=== PATIENT | male | born 1950 | race Caucasian/White ===

== ENCOUNTER 2020-01-01 06:47 | Day surgery (SDC) | payer MEDICARE, SELFPAY ==
[2019-12-31 14:56] VITALS: BMI 25.0
--- NOTE | 2020-01-01 07:15 | W.PM.OPSUD ---
Surgery/Procedure H&P Update DATE OF PROCEDURE: January 01, 2020 DATE H&P PERFORMED: 12/30/19 H&P UPDATE INFORMATION: I have reviewed H&P completed within last 30 days and Changes to prior documentation as noted here CHANGES TO PREVIOUS DOCUMENTATION: The patient indicated that he stopped his Eliquis as directed 2 days ago. During his bowel prep yesterday he did not see any bright red blood but ended up seeing some very dark black stool and describes 1 episode of what he thinks was hematemesis. He has also been having some fleeting epigastric abdominal pains. I told him that as long as he is here and has the indicated ongoing need for blood thinning, I think we need to add an esophagogastroduodenoscopy to his procedures today. The procedure was discussed with him in some detail and he is agreeable to proceeding with both upper and lower endoscopy today. PREOP DIAGNOSIS: Hematochezia, hematemesis, epigastric pain, history of colon cancer PLANNED PROCEDURE: Operation Date: 01/01/20 08:30 Proposed Procedures p Colonoscopy and EGD (Not Applicable) - Reinier Bose MD
[2020-01-01 07:17] VITALS: BP 154/102; PULSE 84; RESP 18; TEMP 36.3; O2SAT 97
[2020-01-01] MEDS: sodium chloride 0.9% 1,000 ML 30 ML IV (07:35)
--- NOTE | 2020-01-01 08:12 | ANES.PREANE2 ---
Pre-Anesthetic Assessment Pre-Anesthetic Assessment: Height/Weight: Height 1.7 m Weight 72.575 kg Temp Pulse Resp BP Pulse Ox 97.4 F L 84 18 154/102 97 01/01/20 07:17 01/01/20 07:17 01/01/20 07:17 01/01/20 07:17 01/01/20 07:17 Preop Diagnosis: Hematochezia, hematemesis, epigastric pain, history of colon cancer Proposed Procedure: Operation Date: 01/01/20 08:30 Proposed Procedures p Colonoscopy(Not Applicable) - Reinier Bose MD Was Beta Anny taken within 24 hours: Yes Last intake: Intake Last Liquid Date 12/31/19 Last Liquid Time 20:00 Last Solid Date 12/31/19 Last Solid Time 06:00 Social: Social History: Alcohol and No tobacco Exam: Pre-Anes Outpt Exam: alert, oriented x 3, clear to auscultation bilaterally and regular rate & rhythm Airway: Submandibular: WNL Cervical ROM: WNL MP: 2 Dentition: False and Full History/ROS: No significant history except as noted and No significant complaints Pulmonary: Pulmonary: Cough CV/HEM: CV/HEM: HTN : : None reported Hepatic: Hepatic: Hepatitis Comments: treated and supposedly neg for Hep C GI: GI: GERD Metabolic: Metabolic: None reported Musc/skel: Musc/skel: OA/DJD Neuropsych: Neuropsych: None reported Anesthetic Plan: ASA status: 3 Anesthesia: Anesthesia Evaluation and MAC Risk of > 500 ml blood loss (7ml/kg in children): No Meds/Allergies Current Medications: Current Medications Generic Name Dose Route Start Last Admin Trade Name Freq PRN Reason Stop Dose Admin Sodium Chloride 1,000 mls @ 30 ml s/hr 01/01/20 07:00 01/01/20 07:35 Sodium Chloride 0.9% IV 01/02/20 06:59 30 mls/hr .Q24H ERIKA Administration Data Anesthesia Cardiac Studies: No Data to Display
[2020-01-01 08:56] VITALS: BP 95/71; PULSE 75; RESP 16; TEMP 36.1; O2SAT 97
[2020-01-01 09:52] VITALS: BP 123/72; PULSE 70; RESP 18; TEMP 36.2; O2SAT 100
[2020-01-02 06:45] LABS: H. Pylori / CLO Test Negative
== END 2020-01-01 09:41 | disposition home or self-care (01) ==
PROVIDERS: Family Provider Family Medicine; PCP Family Medicine; Visit Provider Surgery
PROC: 0DJD8ZZ Inspection of Lower Intestinal Tract, Via Natural or Artificial Opening Endoscopic (ICD-10-PCS; CPT 45378; principal; 2020-01-01 08:25)
PROC: 0DJD8ZZ Inspection of Lower Intestinal Tract, Via Natural or Artificial Opening Endoscopic (ICD-10-PCS; CPT 45378; 2020-01-01 08:25)
DX: K92.1 Melena (principal); Z85.038 Personal history of other malignant neoplasm of large intestine; D12.4 Benign neoplasm of descending colon; D12.5 Benign neoplasm of sigmoid colon; K62.89 Other specified diseases of anus and rectum; K21.0 Gastro-esophageal reflux disease with esophagitis; K29.70 Gastritis, unspecified, without bleeding; K29.80 Duodenitis without bleeding; I10 Essential (primary) hypertension; M19.90 Unspecified osteoarthritis, unspecified site; Z79.01 Long term (current) use of anticoagulants
CPT/HCPCS: 43239; 45385; 12345; 45380; 87077; 88305; J2370; J2704; J7030

== ENCOUNTER 2020-01-13 15:32 | Outpatient (CLI) | payer MEDICARE, SELFPAY ==
[2020-01-13 17:52] LABS: Alanine Aminotransferase 47 U/L (0-41); Albumin Level 4.2 g/dL (3.5-5.2); Alkaline Phosphatase 70 IU/L (40-130); Anion Gap 19.3 (5-19); Aspartate Amino Transferase 43 U/L (0-40); Blood Urea Nitrogen 5 mg/dL (8-23); Calcium 9.6 mg/dL (8.5-10.5); Carbon Dioxide 22 mmol/L (22-29); Chloride 100 mmol/L (98-107); Globulin 3.6 g/dL (1.3-4.6); Glucose 109 mg/dL (65-115); Iron 126 ug/dL (59-158); Osmolality Calculated 280 mOsm/kg (285-295); Percent Saturation 41.8 % (20-50); Potassium 4.3 mmol/L (3.5-5.1); Sodium 137 mmol/L (136-145); Total Bilirubin 0.4 mg/dL (0.15-1.2); Total Iron Binding Capacity 301 mcg/dl; Total Protein 7.8 g/dL (6.6-8.7); Unsaturated Iron Binding 175 ug/dL (112-347)
[2020-01-13 18:04] LABS: Basophils # 0.1 10^3/uL (0.0-0.1); Eosinophils # 0.1 10^3/uL (0.0-0.8); Eosinophils % 1.4 %; Hematocrit 43.3 % (42.0-52.0); Hemoglobin 14.6 g/dL (11.7-16.6); Lymphocytes # 2.3 10^3/uL (0.8-4.8); Lymphocytes % 31.1 %; Mean Corpuscular HGB Conc 33.7 g/dL (30.0-36.0); Mean Corpuscular Hemoglobin 31.7 pg (28.0-34.0); Mean Corpuscular Volume 93.9 fL (80-94); Mean Platelet Volume 9.8 fL (7.4-10.4); Monocytes # 0.6 10^3/uL (0.2-0.9); Monocytes % 8.7 %; Neutrophils # 4.2 10^3/uL (1.8-7.7); Neutrophils % 57.1 %; Nucleated Red Blood Cells % 0 %; Platelet Count 266 10^3/cmm (130-400); Red Blood Count 4.61 10^6/uL (4.1-5.3); Red Cell Distribution Width 12.1 % (12.1-15.1); White Blood Count 7.3 10^3/uL (4.0-10.0)
--- NOTE | 2020-01-13 18:09 | ONC CON_ITS ---
Dr. Peacock New Patient Note Patient: Jay Eisenberg Unit #: [id number]: 1950 Dicatated By: Sharath Peacock M.D.Date of Visit: January 13, 2020 Onc MED New Patient/Consult Referring Physician: Dr. Reinier Bose M.D. Chief Complaint: Rectal cancer. History of Present Illness: This is a 69 year-old man with recently diagnosed adenocarcinoma of the rectum. He has a history of moderate to poorly differentiated adenocarcinoma of the ascending colon for which he underwent right hemicolectomy on 05/24/2005. His primary tumor measured 6.5 x 4.7 x 1.5 cm. It was invading into the subserosal connective tissues, but there was no involvement in 28 lymph nodes. His disease was thus stage IIA (T3, N0, M0). He declined adjuvant chemotherapy. He failed to return for follow-up. He did have a negative surveillance colonoscopy in March 2009. He had presented recently with a several week history of rectal bleeding. He also was having epigastric pain, and he had one episode of hematemesis. He was seen by Dr. Bose, and he underwent EGD and colonoscopy on 01/01/2020. The EGD showed evidence of reflux esophagitis, gastritis, and duodenitis. Biopsy of the esophagus showed benign gastric mucosa with no dysplasia or malignancy identified. The colonoscopy showed sessile polyps in the mid ascending colon and the distal sigmoid colon. The rectum showed a small size, nonobstructing malignant appearing mass. It was not actively bleeding. It was palpable on digital exam, but the distance from the anal verge was not reported. Pathology on the descending colon polyp showed tubular adenoma with focal high-grade dysplasia. The sigmoid polyp showed tubular adenoma. The rectal mass showed moderately differentiated adenocarcinoma with desmoplastic response. He is seen for further management. He has been feeling pretty good generally, though his energy level is somewhat variable. His ECOG score is 1. His appetite has not been as good, but his weight is stable. He has not had fever or night sweats. He had stopped taking apixaban prior to the colonoscopy and following the procedure, his rectal bleeding stopped. He was prescribed medication for the esophagitis, but he has not been taking it. For the last few weeks he has been spitting up a lot of clear to light yellow phlegm from his throat when he first gets up in the morning. He assumes this is from sinus drainage. He has some shortness of breath. He has palpitations associated with his atrial fibrillation, and he does have episodes of rapid heart rate. He is able to get these to subside by lying down. He has not been having chest pain. He has had some nausea. He has not recently been having epigastric pain or acid reflux symptoms. His bowels have been loose ever since his colon surgery. His bladder function has been okay. Recently he has been having pain in his right leg which radiates up to his right hip and lower back. This tends to occur mainly at night and it does get better with activity. He has no other joint or bone pain. He does not complain of headache. He occasionally has dizziness. He has intermittent numbness in his left arm and hand which seems to be positional. He has no other focal neurologic symptoms. Past Medical History: His medical history includes atrial fibrillation, benign prostatic hypertrophy, and hypertension. He has ahistory of ascending colon cancer, stage IIA (T3, N0, M0), and he has a history of treated hepatitis C. Past Surgical History: He underwent right hemicolectomy on 05/24/2005. He had surveillance colonoscopy in March 2009. He underwent EGD and colonoscopy on 01/01/2020. His other surgeries have been limited to TURP and bilateral cataract excisions. Medications: Eliquis 1 Tablet (of 5 mg) Oral b.i.d., Finasteride 1 Tablet (of 5 mg) Oral daily, Lisinopril 1 Tablet (of 10 mg) Oral daily, Metoprolol Succinate ER 1 Tablet (of 25 mg) Tablet SR 24 HR Oral b.i.d. Allergies: citrus intolerance and Penicillins. Social History: Mr. Eisenberg is . He is retired. He had previously worked as a boo. He has history of smoking at least a pack of cigarettes daily for 20 years. He had quit for 12 years but then smoked for another 3 or 4 years. He quit again 5 or 6 years ago. He drinks 2-3 beers daily. Family History: Father of heart attack at age 50. Mother also had heart disease but lived to age 93. A brother also has heart disease and heart disease reportedly runs in the family . A sister of lung cancer at age 68. Review Of Symptoms: Constitutional - He generally feels okay. His energy varies from day to day. He is able to do light work. His appetite varies day to day. His weight is stable. No fever, chills, hot flashes, or night sweats. ECOG score is 1, Eyes - He had cataract surgery, ENMT - He denies a change in hearing. He is having sinus drainage in the mornings. No mouth sores. No sore throat or difficulty swallowing, Hematologic/Lymphatic - He has been having bleeding through his stools. He has no abnormal bruising, Respiratory - He gets short of breath with exertion. He has productive cough with the sinus drainage when he first gets up in the morning. No pleuritic pain or hemoptysis, Cardiovascular - No angina pain. He has palpitations associated with atrial fibrillation. He has frequent episodes of rapid heart rate, Gastrointestinal - No nausea or vomiting. He was having heartburn and epigastric pain. He has had loose stools since his colon surgery. He was having significant amount of blood in the stool, but that has subsided following the colonscopy, Genitourinary (M) - No dysuria or hematuria. No urinary frequency. No urgency or incontinence. He had a prostate surgery 3-4 years ago, Musculoskeletal - He has been having pain in his right leg that radiates up into his hip and back, Integumentary - No skin complications, Neurologic - No headache. He occasionally has dizziness. He has umbness in his left arm and hand whicih is positional, Psychiatric - No anxiety or depression. No insomnia. Vital Signs: Performed on January 13, 2020 15:52: 0, 26.63, 1.89 sq.m, 67.00 in, 97 %, 79 /min, 18 /min, 117/85 mm(hg), 97.7 F (LOW), and 170.0 lbs (HIGH). Physical Examination: Constitutional - He appears to be in good general health, Eyes - Sclerae nonicteric. Conjunctivae clear, ENMT - No lesions noted in the oral cavity, Neck - No mass or thyromegaly, Hematologic/Lymphatic - No cervical, clavicular, or axillary adenopathy, Respiratory - Lungs are clear with pretty good air movement bilaterally, Cardiovascular - Heart rhythm is regular. There is no murmur, gallop, or rub noted, Abdomen - Soft and non-tender. Liver and spleen are not enlarged. There is no abdominal mass or ascites noted and there is no inguinal adenopathy, Back/Spine - No spine or CVA tenderness noted, Extremities - No edema. Pedal pulses are palpable bilaterally, Integumentary - No rashes. No suspicious skin lesions noted, Neurologic - No focal neurologic deficits noted. Impression: 1. Patient with moderately differentiated adenocarcinoma of the rectum. Staging is incomplete. He had presented with rectal bleeding, that has subsided after stopping apixaban. 2. He has prior history of moderate to poorly differentiated adenocarcinoma of the ascending colon, stage IIA (T3, N0, M0) for which he underwent right hemicolectomy on 05/24/2005. He declined adjuvant chemotherapy. He has had no evidence of recurrence. His other medical illnesses include: 3. Hypertension. 4. Atrial fibrillation, which appears to be intermittent. 5. Benign prostatic hypertrophy. 6. He has a history of treated hepatitis C. Plan: The endoscopy findings and pathology results were reviewed with the patient and we discussed the implications. He has a moderately differentiated rectal adenocarcinoma. Staging is incomplete, but it appears to be a small primary tumor. I reviewed the standard treatment for rectal cancer which includes neoadjuvant chemoradiation followed by surgery and possibly by postoperative adjuvant chemotherapy. In this case, with a small primary tumor, there may be other options. As such, I will check baseline laboratory studies today and will arrange for referral to a colorectal surgeon. I will coordinate the planning of his imaging studies with that appointment. We can then plan his definitive treatment when that evaluation is completed. In the meantime, I did recommend that he stay off the apixaban. Signed By: Sharath Peacock M.D. <<Signature on File>>
== END 2020-01-13 15:33 | disposition home or self-care (01) ==
LOC: ONCMED 15:39
PROVIDERS: PCP Family Medicine; Referring Provider Surgery; Visit Provider Internal Medicine Medical Oncology
DX: C20 Malignant neoplasm of rectum (principal); Z85.038 Personal history of other malignant neoplasm of large intestine; Z90.49 Acquired absence of other specified parts of digestive tract; I10 Essential (primary) hypertension; I48.91 Unspecified atrial fibrillation; N40.0 Benign prostatic hyperplasia without lower urinary tract symptoms; Z79.899 Other long term (current) drug therapy
CPT/HCPCS: 36415; 80053; 82378; 83540; 83550; 85025; 99205

== ENCOUNTER 2020-01-15 11:21 | Outpatient (CLI) | payer MEDICARE, SELFPAY ==
--- NOTE | 2020-01-15 11:47 | CT_ITS ---
WS: [id number] CT CHEST, ABDOMEN AND PELVIS WITH AND WITHOUT CONTRAST. HISTORY: MALIGNANT NEOPLASM RECTUM TECHNIQUE: Contiguous 5 mm axial imaging performed through the chest, abdomen and pelvis with and wit hout IV contrast, oral contrast has been provided. Coronal and sagittal reformats chest. Coronal and sagittal reformats through the abdomen and pelvis. All CT scans at [facility] use at leas t one of these dose optimization techniques: automated exposure control; mA and/or kV adjustment per patient size (includes targeted exams where dose is matched to clinical indication); or iterative rec onstruction. CONTRAST: Omnipaque 300; 95 mL IV. DLP: 1415.14 mGy.cm COMPARISON: None available. Chest CT: Lungs are well-aerated. 4 mm groundglass nodule image 21 of series 7 RIGHT upper lobe. Ther e are several nodules which are rounded and ovoid along the fissures. Typically these are benign nodu les. Some of these perifissural nodules are slightly rounded which is more concerning than an ovoid n odule. No pericardial or pleural effusions. Subcentimeter mediastinal and hilar lymph nodes. The larg est lymph node is 9 mm at the AP window. Atherosclerosis of aorta. LEFT vertebral artery arises from the arch. Normal size pulmonary artery. Small hiatal hernia. Abdomen CT: Liver is normal size with diffuse hepatic steatosis. Normal portal vein. Normal size sple en. Normal gallbladder and adrenal glands. Pancreas is negative. Cortical hypodensity in the lower po le of the RIGHT kidney is too small to characterize. No solid mass or obstruction. There is a very sl ight focal dilatation of the mid ureters which may be due to peristalsis. No adenopathy or free fluid . No GI tract obstruction. Partial RIGHT colectomy. No recurrent mass at the hepatic flexure near the s urgical anastomosis. No soft tissue in the rectal region. No rectal mass identified by CT. Pelvic CT: No free fluid in the pelvis. Urinary bladder is well distended. No pelvic adenopathy. Smal l benign appearing inguinal lymph nodes. No osteoblastic or osteolytic bone disease. CT/CT chest abd pel wo/w con IMPRESSION: 1. Status post RIGHT hemicolectomy. No recurrent mass. 2. Known rectal tumor is not identified by CT. 3. No significant adenopathy in the chest, abdomen or pelvis. 4. No metastatic disease to the liver or adrenal glands. 5. Hepatic steatosis. 6. Groundglass nodule RIGHT upper lobe with bilateral perifissural nodules. Lo w probability of malignancy but follow-up chest CT in 6 months is recommended.
[2020-01-15] MEDS: iohexol 300 mg/mL 50 mL Btl PO (13:39)
[2020-01-15] MEDS: iohexol 300 mg/mL 100 mL Btl IV (13:39)
== END 2020-01-15 11:22 | disposition home or self-care (01) ==
LOC: RAD 11:24
PROVIDERS: PCP Family Medicine; Visit Provider Internal Medicine Medical Oncology
DX: C20 Malignant neoplasm of rectum (principal); K76.0 Fatty (change of) liver, not elsewhere classified; R91.1 Solitary pulmonary nodule
CPT/HCPCS: 71260; 74178

== ENCOUNTER 2020-03-29 09:49 | Outpatient (CLI) | payer MEDICARE, SELFPAY ==
[2020-03-29 11:59] LABS: Basophils # 0.1 10^3/uL (0.0-0.1); Eosinophils # 0.1 10^3/uL (0.0-0.8); Eosinophils % 1.2 %; Hemoglobin 15.8 g/dL (11.7-16.6); Lymphocytes # 2.1 10^3/uL (0.8-4.8); Lymphocytes % 25.7 %; Mean Corpuscular HGB Conc 33.6 g/dL (30.0-36.0); Mean Corpuscular Hemoglobin 31.3 pg (28.0-34.0); Mean Corpuscular Volume 93.1 fL (80-94); Mean Platelet Volume 9.3 fL (7.4-10.4); Monocytes # 0.7 10^3/uL (0.2-0.9); Monocytes % 8.7 %; Neutrophils # 5.02 10^3/uL (1.8-7.7); Neutrophils % 62.8 %; Nucleated Red Blood Cells % 0 %; Platelet Count 258 10^3/cmm (130-400); Red Blood Count 5.05 10^6/uL (4.1-5.3); Red Cell Distribution Width 11.6 % (12.1-15.1)
[2020-03-29 12:22] LABS: Carcinoembryonic Antigen 4.1 ng/mL (0.0-4.7)
[2020-03-29 12:33] LABS: Alanine Aminotransferase 55 U/L (0-41); Albumin Level 4.3 g/dL (3.5-5.2); Alkaline Phosphatase 66 IU/L (40-130); Anion Gap 18.3 (5-19); Aspartate Amino Transferase 44 U/L (0-40); Blood Urea Nitrogen 3 mg/dL (8-23); Calcium 8.8 mg/dL (8.5-10.5); Carbon Dioxide 23 mmol/L (22-29); Chloride 99 mmol/L (98-107); Globulin 3.7 g/dL (1.3-4.6); Glucose 98 mg/dL (65-115); Osmolality Calculated 278 mOsm/kg (285-295); Potassium 4.3 mmol/L (3.5-5.1); Sodium 136 mmol/L (136-145); Total Bilirubin 0.6 mg/dL (0.15-1.2)
--- NOTE | 2020-03-30 14:07 | N.ONRAD NP_ITS ---
Radiation Oncology New Patient Visit Patient: Jay Eisenberg MR#: [id number] : 1950> Age: 69> Sex: Male> Dictated by: Dr. Isma Pringle Date of Service: 03/29/2020 Referring Physician(s) : Dr. Reinier Bose Diagnosis: C20 - malignant neoplasm of rectum, Diagnosed 01/13/2020 (active) and Z85.038 - personal history of other malignant neoplasm of large intestine, Diagnosed 01/13/2020 (active). Primary Site: Rectum Diagnosis: pT2 N0 (0/1) M0 adenocarcinoma of the rectum. Purpose of Visit: Discuss the role of radiotherapy with curative intent. History of Present Illness: The patient is a 69-year-old male with a past medical history significant atrial fibrillation treated with Eliquis. He also has a past medical history significant for a T3N0M0 poorly differentiated adenocarcinoma of the ascending colon which was treated with a right hemicolectomy (05/24/2005) without adjuvant chemotherapy due to patient preferences. The primary tumor measured 6.5 x 4.7 x 1.5 cm which invaded into subserosal connective tissue but there was no involvement in 28 lymph nodes. Per review of the medical records, the patient was not fully compliant with oncologic surveillance (his last colonoscopy was in March 2009 and it was negative). More recently, the patient presented with a three week history of rectal bleeding which would ???fill the toilet bowl??? with blood. His rectal bleeding subsequently responded to withholding anticoagulation therapy. He also complained of episodic epigastric pain, and one episode of hematemesis. On 01/01/2020 Dr. Bose performed an EGD, colonoscopy and biopsy of the esophageal region, descending colon polyp, sigmoid colon polyp, and rectal mass biopsies. Pathology revealed moderately differentiated adenocarcinoma of the rectal mass, and benign findings in the esophagus, descending colon, and sigmoid colon. On 01/19/2020, an MRI of the pelvis was completed and this revealed mild focal thickening of the left lower rectal wall (favored to represent known neoplasm), tiny 3 mm perirectal and 4 mm presacral lymph nodes, and an inconvenient completely evaluated lobulated enhancing lesion along the right S1 nerve root possibly indicating a neurogenic tumor. It was recommended that the patient obtain another pre-and postcontrast MRI of the lumbar spine. The patient then underwent a transanal minimally invasive tumor resection and 1 lymph node sampling (Dr Diaz 02/19/2020). During the exam under anesthesia the tumor was described as being a mobile palpable lesion in the left lateral position. Pathology revealed a 1.5 cm mass of moderately differentiated adenocarcinoma invading into muscularis propria, margins negative by 5 mm, no lymphovascular invasion, no perineural invasion, 0/1 involved lymph nodes, and low probability of MSI-H. In consultation today, the patient reports that he does not desire surgical options, if it can be avoided. He reports no abdominal pain, no bloody stools, no pain on defecation, no pencil like stools, and no diarrhea. Current Medications: Eliquis, finasteride, lisinopril, metoprolol Succinate ER. Allergies: citrus intolerance. Medical History: - Atrial fibrillation, - benign prostatic hypertrophy, - history of ascending colon cancer, stage IIA (T3, N0, M0), - history of treated hepatitis C, - hypertension. No history of collagen vascular disease. No previous radiation therapy. Surgical History: Bilateral cataract excisions, eGD and colonoscopy on 01/01/2020, right hemicolectomy for ascending colon cancer on 05/24/2005, surveillance colonoscopy in 2008 and tURP. Family History: Father is at age 50 having experienced myocardial infarction. Mother is at age 93 having experienced heart disease, and old age. Brother is alive. Brother is alive having experienced heart murmur. Sister is alive. Sister is at age 58 having experienced lung cancer. Father of heart attack at age 50. Mother also had heart disease but lived to age 93. A brother also has heart disease and heart disease reportedly runs in the family . A sister of lung cancer at age 68. Social History: Last screened on 03/29/2020 - Yes - but has quit for 6 years. Smoked 0.5 packs/day for 48 years (24 pack years). Last screened on 03/29/2020 - Active drinker 3 drinks/day 1 day/week. Current Complaints / Review of Systems: Constitutional - Denies lack of appetite, fatigue, fever, night sweats and change in weight. Eyes - Denies blurred vision and double vision. ENMT - Denies dysphagia, ear pain, mouth dryness, stomatitis and altered taste. Neck - Denies neck pain. Integumentary - Denies rash. Cardiovascular - Complains of arrhythmias and has H/O of having A-Fib. Denies chest pain and edema. Respiratory - Complains of a moderate cough which is productive. Complains of dyspnea associated with normal activity and is hard to cough it up at times. Denies hemoptysis and wheezing. Gastrointestinal - Complains of diarrhea which is characterized as loose in which he has had this for years. Complains of heartburn / dyspepsia. Complains of melena / GI bleeding in which it has improved and had a streak of blood with wiping this morning. Denies abdominal pain, constipation, nausea, pain / cramping and vomiting. Has rectal irritation from recent surgery. Genitourinary (M) - Complains of nocturia occasionally. Denies frequency, hematuria and urgency. Musculoskeletal - Denies bone pain and joint pain. Has been having leg cramps off and on. Neurologic - Denies dizziness, abnormal gait and headaches. Endocrine - Denies diabetes and thyroid disease. Hematologic/Lymphatic - Denies tender or enlarged lymph nodes.. Vital Signs: Performed on 03/29/2020 10:15 AM BMI - 25.749 kg/m2 (high), Height - 67.00 in, Weight - 164.4 lbs, Temperature - 97.4 f, Pulse - 74, Respiration - 20, O2 Sat - 96 %, Pain - 0 and BP - 144/ 84 mm(hg)(high/). Physical Exam: GENERAL:??? The patient is alert, and in no acute distress. HEENT:??? Head is normocephalic. Face is symmetric. External ocular movements are intact. Sclera and conjunctivae are non erythematous. NECK:??? Trachea is midline.??? Thyroid is not enlarged by palpation.??? LYMPH NODES:??? There is no cervical, supraclavicular, axillary or inguinal adenopathy bilaterally. LUNGS:??? Clear to auscultation bilaterally. Respiratory movement is unlabored. HEART:??? Regular rate and rhythm. Digital rectal examination: There was no palpable mass palpated in the left lateral position. There is no inguinal adenopathy bilaterally. Rectal tone was normal. A faint amount of red blood on the glove was observed. ABDOMEN:??? Soft, nontender, without palpable mass.??? No hepatosplenomegaly. EXTREMITIES:??? No deformities. NEUROLOGIC:??? Gait and station are normal.??? The patient is well coordinated and strength is equal bilaterally. ONLINE PROJECT MANAGER:??? Cranial nerves II-XII are intact and without focal deficits.??? Psych: Affect is normal. Skin: Cursory review of the skin reveals no obvious lesions concerning for malignancy. Pain assessment: This patient???s pain was personally assessed by me. This patient requires no adjustments to pain medications at this time. Performance Status: 1 - No physically strenuous activity, but ambulatory and able to carry out light or sedentary work (e.g. office work, light house work). (ECOG) Pathology: Primary, c20 - malignant neoplasm of rectum, Diagnosed 01/13/2020 (active) and Primary, z85.038 - personal history of other malignant neoplasm of large intestine, Diagnosed 01/13/2020 (active). Lab: Test performed on 01/13/2020 4:32 PM Anion Gap - 19.3 (high), BUN - 5 mg/dl (low), Creatinine - 0.6 mg/dl (low), ALT (SGPT) - 47 u/l (high) and AST (SGOT) - 43 u/l (high). Imaging: See HPI Impression: The patient is a 69 year old male with pT2 N0 (0/1) M0 adenocarcinoma of the rectum. The patient desires no further surgery at this time. The patient has discussed this with Dr. Peacock and staff who plan to treat concurrently with Xeloda. We discussed the curative intent treatment goals of radiotherapy, prognosis with and without radiation therapy, radiation treatment logistics, and potential acute and late side effects. The patient verbalized understanding of the risks/benefits of radiotherapy and the patient has agreed to proceed as recommended. Therefore the plan is: -) Begin treatment radiation treatment planning to deliver a total dose of ~50.4 Gy in 1.8 Gy fractions; -) Search outside medical records to see if a pre & post contrast MRI of the pelvis was completed to work up the possible neurogenic tumor in the lumbar spine. Staff will check with Dr Weiss???s officer to see if this MRI has been ordered. -) Labs will be drawn today by Medical Oncology. Signed by: 03/30/2020 2:05:37 PM <<Signature on File>> Time spent with patient: CPT Code: CPT Code:
--- NOTE | 2020-04-02 10:04 | ONC FU_ITS ---
[facility] Patient Note Patient: Jay Nassar Unit #: [id number]: 1950 Dictated By: Sonali GonsalezDate of Visit: Mar 29, 2020 Onc MED Follow-Up/Prog Note Chief Complaint: Rectal cancer. History of Present Illness: Mr Nassar is a 69-year-old man with recently diagnosed adenocarcinoma of the rectum. He has a history of moderate to poorly differentiated adenocarcinoma of the ascending colon for which he underwent right hemicolectomy on 05/24/2005. His primary tumor measured 6.5 x 4.7 x 1.5 cm. It was invading into the subserosal connective tissues, but there was no involvement in 28 lymph nodes. His disease was thus stage IIA (T3, N0, M0). He declined adjuvant chemotherapy. He failed to return for follow-up. He did have a negative surveillance colonoscopy in March 2009. He had presented recently with a several week history of rectal bleeding. He also was having epigastric pain, and he had one episode of hematemesis. He was seen by Dr. Bose, and he underwent EGD and colonoscopy on 01/01/2020. The EGD showed evidence of reflux esophagitis, gastritis, and duodenitis. Biopsy of the esophagus showed benign gastric mucosa with no dysplasia or malignancy identified. The colonoscopy showed sessile polyps in the mid ascending colon and the distal sigmoid colon. The rectum showed a small size, nonobstructing malignant appearing mass. It was not actively bleeding. It was palpable on digital exam, but the distance from the anal verge was not reported. Pathology on the descending colon polyp showed tubular adenoma with focal high-grade dysplasia. The sigmoid polyp showed tubular adenoma. The rectal mass showed moderately differentiated adenocarcinoma with desmoplastic response. Mr Nassar was seen by Dr Peacock on 05/15/2020. He was then referred to Dr. Diaz in [place]. Mr. Nassar underwent transanal, minimally invasive tumor resection on 02/19/2020.. He follow-up with Dr. Diaz on March 10, 2020. Mr. aNssar was referred back to radiation oncology here at [facility] [place]. His current treatment plan will be concurrent Xeloda/radiation with curative intent per Dr Pringle (radiation oncologist). He has been undergoing the radiation data collection-scan, mri. Mr. Cordova does have his capecitabine tablets. He will also begin radiation therapy today. He has no new concerns. He states he feels pretty good. He is active around the house. He is eating and drinking well. He denies fever or chills. He denies any fever or mouth sores. He denies any new pain. He has had no rectal bleeding or discharge. He denies any diarrhea constipation. States his bowel and bladder are doing well. Her ECOG is 1. Past Medical History: Atrial fibrillation Benign prostatic hypertrophy History of ascending colon cancer, stage IIA (T3, N0, M0) History of treated hepatitis C Hypertension Past Surgical History: Bilateral cataract excisions TURP EGD and colonoscopy in 2019 Surveillance colonoscopy in 2008 Right hemicolectomy for ascending colon cancer in 2004 Allergies: citrus intolerance Medications: Eliquis 1 Tablet (of 5 mg) Oral b.i.d. Finasteride 1 Tablet (of 5 mg) Oral daily Lisinopril 1 Tablet (of 10 mg) Oral daily Metoprolol Succinate ER 1 Tablet (of 25 mg) Tablet SR 24 HR Oral b.i.d. Family History: Mr. Nassar's mother at age 93: heart disease, and old age. Mr. Nassar's father at age 50: myocardial infarction. Mr. Nassar has 2 brothers: 2 alive. Mr. Nassar's first brother's heart murmur. He has 2 sisters: 1 alive, 1 . Mr. Nassar's first sister's lung cancer. Father of heart attack at age 50. Mother also had heart disease but lived to age 93. A brother also has heart disease and heart disease reportedly runs in the family . A sister of lung cancer at age 68. Social History: Mr. Nassar is single and he is an unknown. Mr. Nassar quit smoking 6 years ago but had smoked 0.5 packs/day for 48 years. He drinks daily. He consumes 3 drinks/day 1 day/week. He is retired. He had previously worked as a boo. He has history of smoking at least a pack of cigarettes daily for 20 years. He had quit for 12 years but then smoked for another 3 or 4 years. He quit again 5 or 6 years ago. He drinks 2-3 beers daily. Review Of Symptoms: Constitutional Denies fevers, chills, night sweats, excessive fatigue or weight loss. Allergic/Immunologic No reactions. Eyes Denies significant visual changes. No diplopia. No amaurosis. ENMT Denies changes in hearing, sore throat, mouth sores, difficulty or changes in swallowing ability, and/or sinus drainage. Endocrine No diabetes, thyroid disease or hormone replacement. Denies hot flashes or night sweats. Hematologic/Lymphatic Denies easy bruising or bleeding. The patient denies any tender or palpable lymph nodes. Respiratory Denies dyspnea on exertion, chest pain, cough or hemoptysis. Denies orthopnea. Cardiovascular Denies anginal chest pain, palpitations or orthopnea. Gastrointestinal Denies nausea, vomiting, diarrhea, GI bleeding, or constipation. Denies change in bowel habits and/or stool color, no heartburn or early satiety. Genitourinary (M) Denies hematuria, dysuria, increased frequency, urgency, hesitancy or incontinence. Musculoskeletal Denies joint pain, swelling or redness. No decreased range of motion. Integumentary Denies chronic rashes, inflammation, ulcerations or skin changes. Neurologic Denies headache, blurred vision, and no areas of focal weakness or numbness. Normal gait. No sensory problems. Psychiatric Denies insomnia, depression, brit or mood swings. Constitutional Denies lack of appetite, fatigue, fever, night sweats and change in weight. Eyes Denies blurred vision and double vision. ENMT Denies dysphagia, ear pain, mouth dryness, stomatitis and altered taste. Neck Denies neck pain. Integumentary Denies rash. Cardiovascular Complains of arrhythmias and has H/O of having A-Fib. Denies chest pain and edema. Respiratory Complains of a moderate cough which is productive. Complains of dyspnea associated with normal activity and is hard to cough it up at times. Denies hemoptysis and wheezing. Gastrointestinal Complains of diarrhea which is characterized as loose in which he has had this for years. Complains of heartburn / dyspepsia. Complains of melena / GI bleeding in which it has improved and had a streak of blood with wiping this morning. Denies abdominal pain, constipation, nausea, pain / cramping and vomiting. Has rectal irritation from recent surgery Genitourinary (M) Complains of nocturia occasionally. Denies frequency, hematuria and urgency. Musculoskeletal Denies bone pain and joint pain. Has been having leg cramps off and on Neurologic Denies dizziness, abnormal gait and headaches. Endocrine Denies diabetes and thyroid disease. Hematologic/Lymphatic Denies tender or enlarged lymph nodes. Vital Signs: Performed on Mar 29, 2020 10:15 Height - 67.00 in Weight - 164.4 lbs Temperature - 97.4 F Pulse - 74 Respiration - 20 BP - 144/84 mm(hg) (HIGH) O2 Sat - 96 % Pain - 0 Performed on Mar 29, 2020 10:15 BMI - 25.749 kg/m2 (HIGH),1 - No physically strenuous activity, but ambulatory and able to carry out light or sedentary work (e.g. office work, light house work). (ECOG) Physical Examination: Constitutional Alert, oriented, no acute distress. Skin pink, warm and dry. Head Normocephalic; atraumatic. Eyes Conjunctivae and sclerae are clear and without icterus. Pupils are reactive and equal. Neck Supple without masses or thyromegaly. No jugular venous distension. Hematologic/Lymphatic No petechiae or purpura. No tender or palpable lymph nodes in the cervical or supraclavicular areas. Respiratory Lungs are clear to auscultation without rhonchi or wheezing. Cardiovascular Regular rate and rhythm of heart without murmurs,clicks, gallops or rubs. Abdomen Non-tender, non-distended, no masses or ascites. Good bowel sounds noted in all quads. No guarding or rebound tenderness. No pulsatile masses. Back/Spine Non-tender to palpation. Extremities No visible deformities, no cyanosis, clubbing or edema. Musculoskeletal No tenderness or swelling, normal range of motion without obvious weakness. Integumentary No rashes or lesions. Neurologic No sensory or motor deficits, normal cerebellar function, normal gait. Psychiatric Alert and oriented times three. Coherent speech. Verbalizes understanding of our discussions today. Laboratory:Test performed on Mar 29, 2020 11:40 Sodium 136 mmol/L Potassium 4.3 mmol/L Chloride 99 mmol/L CO2 23 mmol/L Anion Gap 18.3 BUN 3 mg/dL Creatinine 0.6 mg/dL Cr Clearance (Est) 119.1100 mL/min Glucose 98 mg/dL Calcium 8.8 mg/dL Protein, Total 8.0 g/dL Albumin 4.3 g/dL Globulin 3.7 g/dL Bilirubin, Total 0.6 mg/dL ALT (SGPT) 55 U/L AST (SGOT) 44 U/L Alkaline Phosphatase 66 IU/L WBC 8.0 10 3/uL RBC 5.05 10 6/uL HGB 15.8 g/dL HCT 47.0 % MCV 93.1 fL MCH 31.3 pg MCHC 33.6 g/dL RDW 11.6 % Platelet Count 258 10 3/cmm MPV 9.3 fL Neutrophils 5.02 10 3/uL Lymphocytes 2.1 10 3/uL Monocytes 0.7 10 3/uL Eosinophils 0.1 10 3/uL Basophils 0.1 10 3/uL Neutrophil % 62.8 % Lymphocyte % 25.7 % Monocyte % 8.7 % Eosinophil % 1.2 % Basophils % 1.0 % NRBC % 0 % CEA 4.1 ng/mL Test performed on January 13, 2020 16:32 Iron 126 mcg/dL Iron Binding Capacity (TIBC) 301 mcg/dl % Iron Saturation 41.8 % UIBC 175 mcg/dL Impression: 1. Patient with moderately differentiated adenocarcinoma of the rectum. Staging is incomplete. He had presented with rectal bleeding, that has subsided after stopping apixaban. 2. He has prior history of moderate to poorly differentiated adenocarcinoma of the ascending colon, stage IIA (T3, N0, M0) for which he underwent right hemicolectomy on 05/24/2005. He declined adjuvant chemotherapy. He has had no evidence of recurrence. His other medical illnesses include: 3. Hypertension. 4. Atrial fibrillation, which appears to be intermittent. 5. Benign prostatic hypertrophy. 6. He has a history of treated hepatitis C. The endoscopy findings and pathology results were reviewed with the patient per Dr Peacock. He discussed the implications. He has a moderately differentiated rectal adenocarcinoma. He has been evaluated by radiation oncology. Mr. Nassar is here today to begin his first cycle of concurrent therapy with radiation/chemotherapy. He denies any concerns. He states overall he feels pretty good. He denies any pain. He has had no rectal bleeding. He denies any abdominal pain. He is try to get out and walk more often and is tolerating this well. He remains fairly active around the house. Plan: 1. Proceed with Capecitabine his total dosing is 1800 twice daily on the days of radiation only. 2. we will make sure that he has Compazine Ativan on hand for any anti-emetic use. 3. Interim labs today CBC CMP and CEA. 4. We will have him do weekly visits along with CBC, CMP while he is on radiation. 5. AVOID GRAPEFRUIT PRODUCTS WHILE ON XELODA. 6. 6. Mr. Nassar was instructed to contact us in interim should questions or problems arise. 7. We did discuss in detail common side effects of Xeloda being diarrhea, skin peeling and fissures and mouth sores.. As well as many others. Signed By: Dickson GonsalezNMarissa <<Signature on File>>
== END 2020-03-29 09:50 | disposition home or self-care (01) ==
PROVIDERS: Absent Provider Radiology Radiation Oncology; PCP Family Medicine; Visit Provider Nurse Practitioner
DX: C20 Malignant neoplasm of rectum (principal); Z90.49 Acquired absence of other specified parts of digestive tract; Z79.01 Long term (current) use of anticoagulants; Z87.891 Personal history of nicotine dependence; Z85.038 Personal history of other malignant neoplasm of large intestine
CPT/HCPCS: 80053; 82378; 85025; 99214; 99215

== ENCOUNTER 2020-04-01 08:52 | Outpatient (CLI) | payer MEDICARE, SELFPAY ==
--- NOTE | 2020-04-01 09:30 | MR_ITS ---
WS: [id number] MRI LUMBAR SPINE WITH CONTRAST TECHNIQUE: Sagittal T1, T2 and STIR imaging. Axial T1 and T2 imaging. Post gadolinium imaging was obt ained. CLINICAL INFORMATION: RECTAL CA;LOBULATED LESION RT S1 NERVE ROOT SEEN ON MRI COMPARISON: Outside MRI pelvis January 19, 2020 FINDINGS: Mild lumbar curve. No acute compression. Disc bulging worse at L2-3. L1-L2: Normal. L2-L3: Left pericentral protrusion with indentation left subarticular recess and traversing left L3 n erve root. Mild facet arthropathy. Mild left foraminal narrowing. L3-L4: Mild annular bulging with slight effacement of ventral thecal sac. Mild right and no significa nt left foraminal narrowing. Mild facet arthropathy. L4-L5: Mild disc bulging with osteophytic ridging. Small annular fissure. Mild left greater than righ t foraminal narrowing. L5-S1: Enhancing lesion involving the exiting right L5 nerve root. Lobulated lesion measures approxim ately 2.3 x 1.6 CM. Left foramen is patent. Tiny central protrusion with slight effacement of ventral thecal sac. Mild facet arthropathy. Visualized pelvic bony structures: Normal. Paravertebral soft tissues: Normal. MR/MR lumbar spine wo/w con [id number] IMPRESSION: 1. Mild lumbar curve. No acute compression. 2. Prominent left pericentral disc protrusion L2-3 impinges the traversing lef t L3 nerve root in the subarticular recess. Mild central canal stenosis at this level. 3. Enhancing lobulated lesion involving the exiting right L5 nerve root measur ing 2.3 x 1.6 cm. Primary considerations are schwannoma and neurofibroma nerve sheath tumors. Metastasis cannot be entirely excluded with history of malignanc y but less likely given the appearance. Recommend 3 month interval follow-up to assess stability
== END 2020-04-01 08:53 | disposition home or self-care (01) ==
LOC: ONCMED 08:56
PROVIDERS: PCP Family Medicine; Visit Provider Radiology Radiation Oncology
DX: M51.06 Intervertebral disc disorders with myelopathy, lumbar region (principal); M48.061 Spinal stenosis, lumbar region without neurogenic claudication
CPT/HCPCS: 72158; A9579

== ENCOUNTER 2020-05-03 05:37 | Outpatient (RCR) | payer MEDICARE, SELFPAY ==
--- NOTE | 2020-04-05 | CT_ITS ---
Radiation Therapy Planning CT images; total exam DLP: 1132.62 mGy-cm MTDD
== END 2020-05-03 23:59 | disposition home or self-care (01) ==
LOC: ONCMED 05:37
PROVIDERS: PCP Family Medicine; Visit Provider Radiology Radiation Oncology
DX: Z51.0 Encounter for antineoplastic radiation therapy (principal); C20 Malignant neoplasm of rectum
CPT/HCPCS: 77300; 77301; 77334; 77338; 77386; Q9967

== ENCOUNTER 2020-06-02 05:42 | Outpatient (RCR) | payer MEDICARE, SELFPAY ==
--- NOTE | 2020-05-04 15:21 | ONCRAD TMN_ITS ---
Radiation Oncology Weekly Treatment Management Patient: Faina Thompson MR#: [id number] : 1950 Age: 69 Sex: Male Dictated by: Dr. Isma Pringle Date of Service: 05/04/2020 Referring Physician(s) : Dr. Reinier Bose Diagnosis: C20 - Malignant neoplasm of rectum, Diagnosed 01/13/2020 (Active) Z85.038 - Personal history of other malignant neoplasm of large intestine, Diagnosed 01/13/2020 (Active) Pertinent Diagnosis Detail: pT2 N0 (0/1) M0 adenocarcinoma of the rectum status post transanal minimally invasive tumor resection and 1 lymph node sampling (Dr Diaz 02/19/2020). During the exam under anesthesia the tumor was described as being a mobile palpable lesion in the left lateral position. Pathology revealed a 1.5 cm mass of moderately differentiated adenocarcinoma invading into muscularis propria, margins negative by 5 mm, no lymphovascular invasion, no perineural invasion, 0/1 involved lymph nodes, and low probability of MSI-H. In addition, there is a benign appearing mass in the L-spine most consistent with a schwannoma. The patient has been evaluated by Dr Daniel Peacock, neurosurgeon, who elected against biopsy for what was radiographically most likely to be a schwannoma. Although the MRI, read locally, raised a higher concern for metastasis/a malignant process, the MRI of the L spine was over-read at Dr Peacock???s facility and the reading radiologist was reported to concur that a benign schwannoma was most likely. Dr Daniel Peacock and I agreed that if radiation therapy were to be considered in the future to treat this lesion due progressive symptoms, it could be complicated due to prior radiotherapy. Thus, it was mutually agreed that it was reasonable to offer to treat the lesion with radiation simultaneously along with his radiation plan for rectal cancer. The patient was made aware of this decision and he consented. There still remains a small risk that this lesion might not be benign, and radiating it might potentially cause surgical treatment complications in the future. However, given his symptoms and existing planned treatment, it is a reasonable approach. Plan: -) Rectal Cancer: Concurrent chemoradiation therapy using Xeloda and an aggregate dose of 50.4 Gy. -) L spine mass: 50 Gy/25 fractions via simultaneous integrated boost to the L spine mass which radiographically appears to be a benign schwannoma and is causing symptoms. Radiotherapy to date: Course: Pelvis 2019, Treatment Site: Pelvis 25FX, Ref. ID: [id number], Energy: 15X/6X, Dose/Fx (cGy): 200, #Fx: , Dose Correction (cGy): 0, Total Dose (cGy): 400, Start Date: 05/03/2020, Elapsed Days: 1 Reason for visit: The patient is being seen today as part of their regularly scheduled weekly on treatment visits to assess for acute toxicities from radiotherapy. Interim History: The patient has persistent loose watery stools after his initial surgery, but he has no complaints today from treatment. Current Medications: Capecitabine, eliquis, finasteride, lisinopril, metoprolol Succinate ER. Allergies: citrus intolerance. Current Complaints/Review of Systems: Constitutional - Denies lack of appetite, fatigue, fever and night sweats. Integumentary - Has rectal irritation but no rectal bleeding. Gastrointestinal - Complains of persistent diarrhea which is characterized as loose, watery and has about 7 to 8 episodes per day. Denies abdominal pain, constipation, heartburn / dyspepsia, melena / GI bleeding, nausea and vomiting. Genitourinary (M) - Complains of nocturia gets up about 1 time per night. Denies dysuria, frequency and urgency. Vital Signs: Performed on 05/04/2020 11:02 AM BMI - 25.53 kg/m2 (high), Height - 67.00 in, Weight - 163.0 lbs, Temperature - 97.5 f, Pulse - 75, Respiration - 18, O2 Sat - 97 %, Pain - 0 and BP - 131/ 84 mm(hg). Physical Exam: Appears stable, no skin erythema or desquamation. Lungs are clear to auscultation bilaterally. Performance Status: 1 - No physically strenuous activity, but ambulatory and able to carry out light or sedentary work (e.g. office work, light house work). (ECOG) Lab: None pending in Radiation Oncology. Test performed on 03/29/2020 11:40 AM RDW - 11.6 % (low), BUN - 3 mg/dl (low), Creatinine - 0.6 mg/dl (low), ALT (SGPT) - 55 u/l (high) and AST (SGOT) - 44 u/l (high). Imaging: Radiation therapy imaging related to accurate target localization (i.e. KV, MV and CBCT) was reviewed. Appropriate changes, if any, were made to ensure treatment accuracy. Plan: The patient is tolerating therapy reasonably well. Radiotherapy will continue as planned. CPT: 88784 Signed by: Dr. Isma Pringle 05/04/2020 3:20:32 PM
--- NOTE | 2020-05-11 17:16 | ONCRAD TMN_ITS ---
Radiation Oncology Weekly Treatment Management Patient: Faina Thompson MR#: [id number] : 1950 Age: 69 Sex: Male Dictated by: Dr. Isma Pringle Date of Service: 05/11/2020 Referring Physician(s) : Dr. Reinier Bose Pertinent Diagnosis Detail: pT2 N0 (0/1) M0 adenocarcinoma of the rectum status post transanal minimally invasive tumor resection and 1 lymph node sampling (Dr Diaz 02/19/2020). During the exam under anesthesia the tumor was described as being a mobile palpable lesion in the left lateral position. Pathology revealed a 1.5 cm mass of moderately differentiated adenocarcinoma invading into muscularis propria, margins negative by 5 mm, no lymphovascular invasion, no perineural invasion, 0/1 involved lymph nodes, and low probability of MSI-H. In addition, there is a benign appearing mass in the L-spine most consistent with a schwannoma. The patient has been evaluated by Dr Daniel Peacock, neurosurgeon, who elected against biopsy for what was radiographically most likely to be a schwannoma. Although the MRI, read locally, raised a higher concern for metastasis/a malignant process, the MRI of the L spine was over-read at Dr Peacock???s facility and the reading radiologist was reported to concur that a benign schwannoma was most likely. Dr Daniel Peacock and I agreed that if radiation therapy were to be considered in the future to treat this lesion due progressive symptoms, it could be complicated due to prior radiotherapy. Thus, it was mutually agreed that it was reasonable to offer to treat the lesion with radiation simultaneously along with his radiation plan for rectal cancer. The patient was made aware of this decision and he consented. There still remains a small risk that this lesion might not be benign, and radiating it might potentially cause surgical treatment complications in the future. However, given his symptoms and existing planned treatment, it is a reasonable approach. Plan: -) Rectal Cancer: Concurrent chemoradiation therapy using Xeloda and an aggregate dose of 50.4 Gy. -) L spine mass: 50 Gy/25 fractions via simultaneous integrated boost to the L spine mass which radiographically appears to be a benign schwannoma and is causing symptoms. Radiotherapy to date: Course: Pelvis 2019, Treatment Site: Pelvis 25FX, Ref. ID: [id number], Energy: 15X/6X, Dose/Fx (cGy): 200, #Fx: , Dose Correction (cGy): 0, Total Dose (cGy): 1,200, Start Date: 05/03/2020, Elapsed Days: 8 Reason for visit: The patient is being seen today as part of their regularly scheduled weekly on treatment visits to assess for acute toxicities from radiotherapy. Interim History: The patient reports improved diarrhea. He has no complaints today. Current Medications: Capecitabine, eliquis, finasteride, lisinopril, metoprolol Succinate ER. Allergies: citrus intolerance. Current Complaints/Review of Systems: Constitutional - Denies lack of appetite, fatigue, fever, night sweats and change in weight. Integumentary - Has no rectal irritation. Gastrointestinal - Complains of diarrhea but has improved. Denies abdominal pain, constipation, heartburn / dyspepsia, melena / GI bleeding, nausea and vomiting. Genitourinary (M) - Denies dysuria, frequency, nocturia and urgency. Vital Signs: Performed on 05/11/2020 11:58 AM BMI - 25.686 kg/m2 (high), Height - 67.00 in, Weight - 164.0 lbs, Temperature - 97.4 f, Pulse - 75, Respiration - 18, O2 Sat - 96 %, Pain - 0 and BP - 131/ 72 mm(hg). Physical Exam: Appears stable, no skin erythema or desquamation. Lungs are clear to auscultation bilaterally. Performance Status: 1 - No physically strenuous activity, but ambulatory and able to carry out light or sedentary work (e.g. office work, light house work). (ECOG) Lab: None pending in Radiation Oncology. Imaging: Radiation therapy imaging related to accurate target localization (i.e. KV, MV and CBCT) was reviewed. Appropriate changes, if any, were made to ensure treatment accuracy. Plan: The patient is tolerating therapy reasonably well. Radiotherapy will continue as planned. CPT: 75829 Signed by: Dr. Isma Pringle 05/11/2020 5:14:23 PM
--- NOTE | 2020-05-19 16:10 | ONCRAD TMN_ITS ---
Radiation Oncology Weekly Treatment Management Patient: Jay Eisenberg MR#: [id number] : 1950 Age: 69 Sex: Male Dictated by: Dr. Isma Pringle Date of Service: 05/18/2020 Referring Physician(s) : Dr. Reinier Bose Diagnosis: C20 - Malignant neoplasm of rectum, Diagnosed 01/13/2020 (Active) Z85.038 - Personal history of other malignant neoplasm of large intestine, Diagnosed 01/13/2020 (Active) Pertinent Diagnosis Detail: pT2 N0 (0/1) M0 adenocarcinoma of the rectum status post transanal minimally invasive tumor resection and 1 lymph node sampling (Dr Diaz 02/19/2020). During the exam under anesthesia the tumor was described as being a mobile palpable lesion in the left lateral position. Pathology revealed a 1.5 cm mass of moderately differentiated adenocarcinoma invading into muscularis propria, margins negative by 5 mm, no lymphovascular invasion, no perineural invasion, 0/1 involved lymph nodes, and low probability of MSI-H. In addition, there is a benign appearing mass in the L-spine most consistent with a schwannoma. The patient has been evaluated by Dr Daniel Peacock, neurosurgeon, who elected against biopsy for what was radiographically most likely to be a schwannoma. Although the MRI, read locally, raised a higher concern for metastasis/a malignant process, the MRI of the L spine was over-read at Dr Peacock???s facility and the reading radiologist was reported to concur that a benign schwannoma was most likely. Dr Daniel Peacock and I agreed that if radiation therapy were to be considered in the future to treat this lesion due progressive symptoms, it could be complicated due to prior radiotherapy. Thus, it was mutually agreed that it was reasonable to offer to treat the lesion with radiation simultaneously along with his radiation plan for rectal cancer. The patient was made aware of this decision and he consented. There still remains a small risk that this lesion might not be benign, and radiating it might potentially cause surgical treatment complications in the future. However, given his symptoms and existing planned treatment, it is a reasonable approach. Plan: -) Rectal Cancer: Concurrent chemoradiation therapy using Xeloda and an aggregate dose of 50.4 Gy. -) L spine mass: 50 Gy/25 fractions via simultaneous integrated boost to the L spine mass which radiographically appears to be a benign schwannoma and is causing symptoms. Radiotherapy to date: Course: Pelvis 2019, Treatment Site: Pelvis 25FX, Ref. ID: [id number], Energy: 15X/6X, Dose/Fx (cGy): 200, #Fx: , Dose Correction (cGy): 0, Total Dose (cGy): 2,200, Start Date: 05/03/2020, Elapsed Days: 15 Reason for visit: The patient is being seen today as part of their regularly scheduled weekly on treatment visits to assess for acute toxicities from radiotherapy. Interim History: The patient has no complaints today. He reports that his loose stools have improved with Imodium use. Furthermore, he reports that his pain in his lower back has significantly improved. Current Medications: Capecitabine, eliquis, finasteride, lisinopril, metoprolol Succinate ER. Allergies: citrus intolerance. Current Complaints/Review of Systems: Constitutional - Denies lack of appetite, fatigue, fever, night sweats and change in weight. Integumentary - No rectal irritation. Gastrointestinal - Complains of diarrhea but is improving with taking Imodium. Denies abdominal pain, constipation, heartburn / dyspepsia, melena / GI bleeding, nausea and vomiting. Genitourinary (M) - Complains of nocturia gets up about 1 time per night. Denies dysuria, frequency and urgency. Vital Signs: Performed on 05/18/2020 11:09 AM BMI - 25.53 kg/m2 (high), Height - 67.00 in, Weight - 163.0 lbs, Temperature - 97.6 f, Pulse - 67, Respiration - 18, O2 Sat - 97 %, Pain - 0 and BP - 136/ 80 mm(hg). Physical Exam: Lungs are clear to auscultation bilaterally. Performance Status: 1 - No physically strenuous activity, but ambulatory and able to carry out light or sedentary work (e.g. office work, light house work). (ECOG) Lab: None pending in Radiation Oncology. Test performed on 03/29/2020 11:40 AM RDW - 11.6 % (low), BUN - 3 mg/dl (low), Creatinine - 0.6 mg/dl (low), ALT (SGPT) - 55 u/l (high) and AST (SGOT) - 44 u/l (high). Imaging: Radiation therapy imaging related to accurate target localization (i.e. KV, MV and CBCT) was reviewed. Appropriate changes, if any, were made to ensure treatment accuracy. Plan: The patient is tolerating therapy reasonably well. Radiotherapy will continue as planned. CPT: 44523 Signed by: Dr. Isma Pringle 05/19/2020 4:08:40 PM
--- NOTE | 2020-05-26 17:38 | ONCRAD TMN_ITS ---
Radiation Oncology Weekly Treatment Management Patient: Faina Thompson MR#: [id number] : 1950 Age: 69 Sex: Male Dictated by: Dr. Isma Pringle Date of Service: 05/25/2020 Referring Physician(s) : Dr. Reinier Bose Diagnosis: C20 - Malignant neoplasm of rectum, Diagnosed 01/13/2020 (Active) Z85.038 - Personal history of other malignant neoplasm of large intestine, Diagnosed 01/13/2020 (Active) Pertinent Diagnosis Detail: pT2 N0 (0/1) M0 adenocarcinoma of the rectum status post transanal minimally invasive tumor resection and 1 lymph node sampling (Dr Diaz 02/19/2020). During the exam under anesthesia the tumor was described as being a mobile palpable lesion in the left lateral position. Pathology revealed a 1.5 cm mass of moderately differentiated adenocarcinoma invading into muscularis propria, margins negative by 5 mm, no lymphovascular invasion, no perineural invasion, 0/1 involved lymph nodes, and low probability of MSI-H. In addition, there is a benign appearing mass in the L-spine most consistent with a schwannoma. The patient has been evaluated by Dr Daniel Peacock, neurosurgeon, who elected against biopsy for what was radiographically most likely to be a schwannoma. Although the MRI, read locally, raised a higher concern for metastasis/a malignant process, the MRI of the L spine was over-read at Dr Peacock???s facility and the reading radiologist was reported to concur that a benign schwannoma was most likely. Dr Daniel Peacock and I agreed that if radiation therapy were to be considered in the future to treat this lesion due progressive symptoms, it could be complicated due to prior radiotherapy. Thus, it was mutually agreed that it was reasonable to offer to treat the lesion with radiation simultaneously along with his radiation plan for rectal cancer. The patient was made aware of this decision and he consented. There still remains a small risk that this lesion might not be benign, and radiating it might potentially cause surgical treatment complications in the future. However, given his symptoms and existing planned treatment, it is a reasonable approach. Plan: -) Rectal Cancer: Concurrent chemoradiation therapy using Xeloda and an aggregate dose of 50.4 Gy. -) L spine mass: 50 Gy/25 fractions via simultaneous integrated boost to the L spine mass which radiographically appears to be a benign schwannoma and is causing symptoms. Radiotherapy to date: Energy: 15X/6X Dose/Fx (cGy): 200 #Fx: Total Dose (cGy): 3,400 Start Date: 05/03/2020 End Date: 05/26/2020 Reason for visit: The patient is being seen today as part of their regularly scheduled weekly on treatment visits to assess for acute toxicities from radiotherapy. Interim History: The patient reports mild rectal irritation and occasional loose/watery stools. Reports no rectal bleeding or dysuria. Current Medications: Capecitabine, eliquis, finasteride, lisinopril, metoprolol Succinate ER. Allergies: citrus intolerance. Current Complaints/Review of Systems: Constitutional - Complains of lack of appetite off and on and change in weight in which he is down 1.2 lbs. since last OTV. Denies fatigue, fever and night sweats. Integumentary - No rectal bleeding but has irritation. Gastrointestinal - Complains of intermittent diarrhea which is characterized as loose, watery. Complains of satiety. Denies abdominal pain, constipation, melena / GI bleeding, nausea and vomiting. Genitourinary (M) - Complains of nocturia gets up about 1 to 2 times per night. Denies dysuria, frequency and urgency. Vital Signs: Performed on 05/25/2020 11:19 AM BMI - 25.342 kg/m2 (high), Height - 67.00 in, Weight - 161.8 lbs, Temperature - 98.0 f, Pulse - 74, Respiration - 20, O2 Sat - 97 %, Pain - 0 and BP - 111/ 73 mm(hg). Physical Exam: The patient declined an external anal exam. Performance Status: 1 - No physically strenuous activity, but ambulatory and able to carry out light or sedentary work (e.g. office work, light house work). (ECOG) Lab: None pending in Radiation Oncology. Test performed on 03/29/2020 11:40 AM RDW - 11.6 % (low), BUN - 3 mg/dl (low), Creatinine - 0.6 mg/dl (low), ALT (SGPT) - 55 u/l (high) and AST (SGOT) - 44 u/l (high). Imaging: Radiation therapy imaging related to accurate target localization (i.e. KV, MV and CBCT) was reviewed. Appropriate changes, if any, were made to ensure treatment accuracy. Plan: The patient is tolerating therapy reasonably well. Radiotherapy will continue as planned. CPT: 23489 Signed by: Dr. Isma Pringle 05/26/2020 5:35:53 PM
[2020-05-31 12:35] LABS: Basophils % 0.8 %; Eosinophils # 0.1 10^3/uL (0.0-0.8); Hematocrit 40.3 % (42.0-52.0); Hemoglobin 13.9 g/dL (11.7-16.6); Lymphocytes # 0.7 10^3/uL (0.8-4.8); Mean Corpuscular HGB Conc 34.5 g/dL (30.0-36.0); Mean Corpuscular Hemoglobin 32.6 pg (28.0-34.0); Mean Corpuscular Volume 94.6 fL (80-94); Mean Platelet Volume 9.4 fL (7.4-10.4); Monocytes # 0.6 10^3/uL (0.2-0.9); Monocytes % 12.5 %; Neutrophils # 3.61 10^3/uL (1.8-7.7); Neutrophils % 70.3 %; Nucleated Red Blood Cells % 0 %; Platelet Count 149 10^3/cmm (130-400); Red Blood Count 4.26 10^6/uL (4.1-5.3); Red Cell Distribution Width 13.3 % (12.1-15.1); White Blood Count 5.1 10^3/uL (4.0-10.0)
[2020-05-31 12:48] LABS: Alanine Aminotransferase 40 U/L (0-41); Albumin Level 4.1 g/dL (3.5-5.2); Alkaline Phosphatase 58 IU/L (40-130); Anion Gap 14.9 (5-19); Aspartate Amino Transferase 33 U/L (0-40); Blood Urea Nitrogen 5 mg/dL (8-23); Carbon Dioxide 24 mmol/L (22-29); Chloride 98 mmol/L (98-107); Globulin 3.3 g/dL (1.3-4.6); Glucose 95 mg/dL (65-115); Osmolality Calculated 273 mOsm/kg (285-295); Potassium 3.9 mmol/L (3.5-5.1); Sodium 133 mmol/L (136-145); Total Bilirubin 0.7 mg/dL (0.15-1.2); Total Protein 7.4 g/dL (6.6-8.7)
--- NOTE | 2020-06-03 08:56 | ONCRAD TMN_ITS ---
Radiation Oncology Weekly Treatment Management Patient: Faina Thompson MR#: [id number] : 1950 Age: 69 Sex: Male Dictated by: Dr. Isma Pringle Date of Service: 06/01/2020 Referring Physician(s) : Dr. Reinier Bose Diagnosis: C20 - Malignant neoplasm of rectum, Diagnosed 01/13/2020 (Active) Z85.038 - Personal history of other malignant neoplasm of large intestine, Diagnosed 01/13/2020 (Active) Pertinent Diagnosis Detail: pT2 N0 (0/1) M0 adenocarcinoma of the rectum status post transanal minimally invasive tumor resection and 1 lymph node sampling (Dr Diaz 02/19/2020). During the exam under anesthesia the tumor was described as being a mobile palpable lesion in the left lateral position. Pathology revealed a 1.5 cm mass of moderately differentiated adenocarcinoma invading into muscularis propria, margins negative by 5 mm, no lymphovascular invasion, no perineural invasion, 0/1 involved lymph nodes, and low probability of MSI-H. In addition, there is a benign appearing mass in the L-spine most consistent with a schwannoma. The patient has been evaluated by Dr Daniel Peacock, neurosurgeon, who elected against biopsy for what was radiographically most likely to be a schwannoma. Although the MRI, read locally, raised a higher concern for metastasis/a malignant process, the MRI of the L spine was over-read at Dr Peacock???s facility and the reading radiologist was reported to concur that a benign schwannoma was most likely. Dr Daniel Peacock and I agreed that if radiation therapy were to be considered in the future to treat this lesion due progressive symptoms, it could be complicated due to prior radiotherapy. Thus, it was mutually agreed that it was reasonable to offer to treat the lesion with radiation simultaneously along with his radiation plan for rectal cancer. The patient was made aware of this decision and he consented. There still remains a small risk that this lesion might not be benign, and radiating it might potentially cause surgical treatment complications in the future. However, given his symptoms and existing planned treatment, it is a reasonable approach. Plan: -) Rectal Cancer: Concurrent chemoradiation therapy using Xeloda and an aggregate dose of 50.4 Gy. -) L spine mass: 50 Gy/25 fractions via simultaneous integrated boost to the L spine mass which radiographically appears to be a benign schwannoma and is causing symptoms. Radiotherapy to date: Course: Pelvis 2019, Treatment Site: Pelvis 25FX, Ref. ID: [id number], Energy: 15X/6X, Dose/Fx (cGy): 200, #Fx: , Dose Correction (cGy): 0, Total Dose (cGy): 4,200, Start Date: 05/03/2020, Elapsed Days: 29 Reason for visit: The patient is being seen today as part of their regularly scheduled weekly on treatment visits to assess for acute toxicities from radiotherapy. Interim History: During the patient's visit today, he noted that he was having diarrhea 5-6 times per day. He also reports mild fatigue, and diminished appetite. Current Medications: Capecitabine, eliquis, finasteride, lisinopril, metoprolol Succinate ER. Allergies: citrus intolerance. Current Complaints/Review of Systems: Constitutional - Complains of no appetite. Complains of mild fatigue. Denies fever and night sweats. Integumentary - Has rectal irritation. Gastrointestinal - Complains of diarrhea which is characterized as loose, watery and has been having 8 episodes per day. Complains of satiety. Denies abdominal pain, constipation, heartburn / dyspepsia, melena / GI bleeding, nausea and vomiting. Genitourinary (M) - Complains of nocturia gets up about 1 to 2 times per night. Denies dysuria, frequency and urgency. Vital Signs: Performed on 06/01/2020 11:33 AM BMI - 25.185 kg/m2 (high), Height - 67.00 in, Weight - 160.8 lbs, Temperature - 98.4 f, Pulse - 68, Respiration - 18, O2 Sat - 98 %, Pain - 0 and BP - 120/ 77 mm(hg). Physical Exam: Lungs are clear to auscultation bilaterally. The patient declined examination of his anus. Performance Status: 1 - No physically strenuous activity, but ambulatory and able to carry out light or sedentary work (e.g. office work, light house work). (ECOG) Lab: None pending in Radiation Oncology. Imaging: Radiation therapy imaging related to accurate target localization (i.e. KV, MV and CBCT) was reviewed. Appropriate changes, if any, were made to ensure treatment accuracy. Plan: The patient is tolerating therapy reasonably well. Radiotherapy will continue as planned. The patient was encouraged to take Imodium as directed. CPT: 81643 Signed by: Dr. Isma Pringle 06/03/2020 8:55:53 AM
--- NOTE | 2020-06-08 21:58 | ONC FU_ITS ---
[facility] Patient Note Patient: Jay Nassar < Unit #: [id number]: 1950 Dictated By: Sonali GonsalezDate of Visit: Jun 01, 2020 Onc MED Follow-Up/Prog Note Chief Complaint: Rectal cancer. History of Present Illness: Mr Nassar is a 69-year-old man with recently diagnosed adenocarcinoma of the rectum. He has a history of moderate to poorly differentiated adenocarcinoma of the ascending colon for which he underwent right hemicolectomy on 05/24/2005. His primary tumor measured 6.5 x 4.7 x 1.5 cm. It was invading into the subserosal connective tissues, but there was no involvement in 28 lymph nodes. His disease was thus stage IIA (T3, N0, M0). He declined adjuvant chemotherapy. He failed to return for follow-up. He did have a negative surveillance colonoscopy in March 2009. He had presented recently with a several week history of rectal bleeding. He also was having epigastric pain, and he had one episode of hematemesis. He was seen by Dr. Bose, and he underwent EGD and colonoscopy on 01/01/2020. The EGD showed evidence of reflux esophagitis, gastritis, and duodenitis. Biopsy of the esophagus showed benign gastric mucosa with no dysplasia or malignancy identified. The colonoscopy showed sessile polyps in the mid ascending colon and the distal sigmoid colon. The rectum showed a small size, nonobstructing malignant appearing mass. It was not actively bleeding. It was palpable on digital exam, but the distance from the anal verge was not reported. Pathology on the descending colon polyp showed tubular adenoma with focal high-grade dysplasia. The sigmoid polyp showed tubular adenoma. The rectal mass showed moderately differentiated adenocarcinoma with desmoplastic response. Mr Nassar was seen by Dr Peacock on 05/15/2020. He was then referred to Dr. Diaz in [place]. Mr. Nassar underwent transanal, minimally invasive tumor resection on 02/19/2020.. He follow-up with Dr. Diaz on March 10, 2020. Mr. Nassar was referred back to radiation oncology here at [facility]. His current treatment plan will be concurrent Xeloda/radiation with curative intent per Dr Pringle (radiation oncologist). He has been undergoing the radiation data collection-scan, mri. Mr Cisse is here today for followup of chemoradiation. He is taking Xeloda for chemo sensitization. He began treatment on 05/03/2020. He has done well overall. He has no new concerns. He states he feels pretty good. He is active around the house. He is eating and drinking well. He denies fever or chills. He denies any fever or mouth sores. He denies any new pain. He has had no rectal bleeding or discharge. He denies any constipation. He has had some intermittent diarrhea but is controlled with Imodium.. He denies any mouth sores sore throat or difficulty swallowing. He is had no skin changes or redness/tenderness of his hands or feet. His ECOG is 1. Past Medical History: Atrial fibrillation Benign prostatic hypertrophy History of ascending colon cancer, stage IIA (T3, N0, M0) History of treated hepatitis C Hypertension Past Surgical History: Bilateral cataract excisions TURP EGD and colonoscopy in 2019 Surveillance colonoscopy in 2008 Right hemicolectomy for ascending colon cancer in 2004 Allergies: citrus intolerance Medications: Eliquis 1 Tablet (of 5 mg) Oral b.i.d. Finasteride 1 Tablet (of 5 mg) Oral daily Lisinopril 1 Tablet (of 10 mg) Oral daily Metoprolol Succinate ER 1 Tablet (of 25 mg) Tablet SR 24 HR Oral b.i.d. Family History: Mr. Nassar's mother at age 93: heart disease, and old age. Mr. Nassar's father at age 50: myocardial infarction. Mr. Nassar has 2 brothers: 2 alive. Mr. Nassar's first brother's heart murmur. He has 2 sisters: 1 alive, 1 . Mr. Nassar's first sister's lung cancer. Father of heart attack at age 50. Mother also had heart disease but lived to age 93. A brother also has heart disease and heart disease reportedly runs in the family . A sister of lung cancer at age 68. Social History: Mr. Nassar is single and he is an unknown. Mr. Nassar quit smoking 6 years ago but had smoked 0.5 packs/day for 48 years. He drinks daily. He consumes 3 drinks/day 1 day/week. He is retired. He had previously worked as a boo. He has history of smoking at least a pack of cigarettes daily for 20 years. He had quit for 12 years but then smoked for another 3 or 4 years. He quit again 5 or 6 years ago. He drinks 2-3 beers daily. Review Of Symptoms: Constitutional Denies fevers, chills, night sweats, excessive fatigue or weight loss. Allergic/Immunologic No reactions. Eyes Denies significant visual changes. No diplopia. No amaurosis. ENMT Denies changes in hearing, sore throat, mouth sores, difficulty or changes in swallowing ability, and/or sinus drainage. Endocrine No diabetes, thyroid disease or hormone replacement. Denies hot flashes or night sweats. Hematologic/Lymphatic Denies easy bruising or bleeding. The patient denies any tender or palpable lymph nodes. Respiratory Denies dyspnea on exertion, chest pain, cough or hemoptysis. Denies orthopnea. Cardiovascular Denies anginal chest pain, palpitations or orthopnea. Gastrointestinal Denies nausea, vomiting, diarrhea, GI bleeding, or constipation. Denies change in bowel habits and/or stool color, no heartburn or early satiety. Genitourinary (M) Denies hematuria, dysuria, increased frequency, urgency, hesitancy or incontinence. Musculoskeletal Denies joint pain, swelling or redness. No decreased range of motion. Integumentary Denies chronic rashes, inflammation, ulcerations or skin changes. Neurologic Denies headache, blurred vision, and no areas of focal weakness or numbness. Normal gait. No sensory problems. Psychiatric Denies insomnia, depression, brit or mood swings. Constitutional Complains of no appetite. Complains of mild fatigue. Denies fever and night sweats. Integumentary Has rectal irritation. Gastrointestinal Complains of diarrhea which is characterized as loose, watery and has been having 8 episodes per day. Complains of satiety. Denies abdominal pain, constipation, heartburn / dyspepsia, melena / GI bleeding, nausea and vomiting. Genitourinary (M) Complains of nocturia gets up about 1 to 2 times per night. Denies dysuria, frequency and urgency. Vital Signs: Performed on Jun 01, 2020 11:33 Height - 67.00 in Weight - 160.8 lbs Temperature - 98.4 F Pulse - 68 Respiration - 18 BP - 120/77 mm(hg) O2 Sat - 98 % Pain - 0 Performed on Jun 01, 2020 11:33 BMI - 25.185 kg/m2 (HIGH),1 - No physically strenuous activity, but ambulatory and able to carry out light or sedentary work (e.g. office work, light house work). (ECOG) Physical Examination: Constitutional Alert, oriented, no acute distress. Skin pink, warm and dry. Head Normocephalic; atraumatic. Eyes Conjunctivae and sclerae are clear and without icterus. Pupils are reactive and equal. Neck Supple without masses or thyromegaly. No jugular venous distension. Hematologic/Lymphatic No petechiae or purpura. No tender or palpable lymph nodes in the cervical or supraclavicular areas. Respiratory Lungs are clear to auscultation without rhonchi or wheezing. Cardiovascular Regular rate and rhythm of heart without murmurs,clicks, gallops or rubs. Abdomen Non-tender, non-distended, no masses or ascites. Good bowel sounds noted in all quads. No guarding or rebound tenderness. No pulsatile masses. Back/Spine Non-tender to palpation. Extremities No visible deformities, no cyanosis, clubbing or edema. Musculoskeletal No tenderness or swelling, normal range of motion without obvious weakness. Integumentary No rashes or lesions. Neurologic No sensory or motor deficits, normal cerebellar function, normal gait. Psychiatric Alert and oriented times three. Coherent speech. Verbalizes understanding of our discussions today. Laboratory:[see plan below and flow sheet for current labs: ^Test performed on Mar 29, 2020 11:40 Sodium 136 mmol/L Potassium 4.3 mmol/L Chloride 99 mmol/L CO2 23 mmol/L Anion Gap 18.3 BUN 3 mg/dL Creatinine 0.6 mg/dL Cr Clearance (Est) 119.1100 mL/min Glucose 98 mg/dL Calcium 8.8 mg/dL Protein, Total 8.0 g/dL Albumin 4.3 g/dL Globulin 3.7 g/dL Bilirubin, Total 0.6 mg/dL ALT (SGPT) 55 U/L AST (SGOT) 44 U/L Alkaline Phosphatase 66 IU/L WBC 8.0 10 3/uL RBC 5.05 10 6/uL HGB 15.8 g/dL HCT 47.0 % MCV 93.1 fL MCH 31.3 pg MCHC 33.6 g/dL RDW 11.6 % Platelet Count 258 10 3/cmm MPV 9.3 fL Neutrophils 5.02 10 3/uL Lymphocytes 2.1 10 3/uL Monocytes 0.7 10 3/uL Eosinophils 0.1 10 3/uL Basophils 0.1 10 3/uL Neutrophil % 62.8 % Lymphocyte % 25.7 % Monocyte % 8.7 % Eosinophil % 1.2 % Basophils % 1.0 % NRBC % 0 % CEA 4.1 ng/mL Test performed on January 13, 2020 16:32 Iron 126 mcg/dL Iron Binding Capacity (TIBC) 301 mcg/dl % Iron Saturation 41.8 % UIBC 175 mcg/dL Impression: 1. Patient with moderately differentiated adenocarcinoma of the rectum. Staging is incomplete. He had presented with rectal bleeding, that has subsided after stopping apixaban. 2. He has prior history of moderate to poorly differentiated adenocarcinoma of the ascending colon, stage IIA (T3, N0, M0) for which he underwent right hemicolectomy on 05/24/2005. He declined adjuvant chemotherapy. He has had no evidence of recurrence. His other medical illnesses include: 3. Hypertension. 4. Atrial fibrillation, which appears to be intermittent. 5. Benign prostatic hypertrophy. 6. He has a history of treated hepatitis C. The endoscopy findings and pathology results were reviewed with the patient per Dr Peacock. He discussed the implications. He has a moderately differentiated rectal adenocarcinoma. He has been evaluated by radiation oncology. Mr. Nassar began concurrent therapy with radiation/chemotherapy on 05/03/2020. Plan: 1. Proceed with Capecitabine his total dosing is 1800 twice daily on the days of radiation only. 2. Compazine Ativan prn nausea. 3. Labs from May 31, 2020 were reviewed in detail discussed with Mr. Nassar and a copy was given to him. WBC 5.1, hemoglobin 13.09, platelets 1 49,000, ANC is 3600. Potassium 3.9, creatinine 0.5, ALT is 40 AST is 33 alk phos is 58. 4. We will have him do weekly visits along with CBC, CMP while he completes radiation. 5. AVOID GRAPEFRUIT PRODUCTS WHILE ON XELODA. 6. 6. Mr. Nassar was instructed to contact us in interim should questions or problems arise. 7. We did discuss in detail common side effects of Xeloda being fatigue, diarrhea, skin peeling and fissures and mouth sores. Signed By: Sonali Gonsalez-, CNP Sharath Peacock MD <<Signature on File>>
== END 2020-06-02 23:59 | disposition home or self-care (01) ==
LOC: ONCMED 05:42
PROVIDERS: Nurse Practitioner; PCP Family Medicine; Visit Provider Radiology Radiation Oncology
DX: Z51.0 Encounter for antineoplastic radiation therapy (principal); C20 Malignant neoplasm of rectum; I10 Essential (primary) hypertension; I48.91 Unspecified atrial fibrillation; N40.0 Benign prostatic hyperplasia without lower urinary tract symptoms; Z86.19 Personal history of other infectious and parasitic diseases
CPT/HCPCS: 36415; 77336; 77386; 80053; 85025; 99214

== ENCOUNTER 2020-06-15 05:34 | Outpatient (RCR) | payer MEDICARE, SELFPAY ==
[2020-06-08 13:21] LABS: Alanine Aminotransferase 34 U/L (0-41); Alkaline Phosphatase 63 IU/L (40-130); Anion Gap 13.1 (5-19); Aspartate Amino Transferase 29 U/L (0-40); Blood Urea Nitrogen 6 mg/dL (8-23); Calcium 9.1 mg/dL (8.5-10.5); Carbon Dioxide 25 mmol/L (22-29); Chloride 100 mmol/L (98-107); Globulin 3.3 g/dL (1.3-4.6); Glucose 95 mg/dL (65-115); Osmolality Calculated 275 mOsm/kg (285-295); Potassium 4.1 mmol/L (3.5-5.1); Sodium 134 mmol/L (136-145); Total Bilirubin 0.7 mg/dL (0.15-1.2); Total Protein 7.3 g/dL (6.6-8.7)
[2020-06-08 13:28] LABS: Basophils % 0.8 %; Eosinophils % 0.4 %; Hemoglobin 13.4 g/dL (11.7-16.6); Lymphocytes # 0.5 10^3/uL (0.8-4.8); Lymphocytes % 9.2 %; Mean Corpuscular HGB Conc 34.4 g/dL (30.0-36.0); Mean Corpuscular Hemoglobin 33.5 pg (28.0-34.0); Mean Corpuscular Volume 97.5 fL (80-94); Mean Platelet Volume 9.4 fL (7.4-10.4); Monocytes # 0.6 10^3/uL (0.2-0.9); Monocytes % 12.7 %; Neutrophils # 3.68 10^3/uL (1.8-7.7); Neutrophils % 75.5 %; Nucleated Red Blood Cells % 0 %; Platelet Count 184 10^3/cmm (130-400); Red Cell Distribution Width 15.2 % (12.1-15.1); White Blood Count 4.9 10^3/uL (4.0-10.0)
--- NOTE | 2020-06-09 12:54 | ONC FU_ITS ---
Dr. Peacock Patient Follow-Up Note Patient: Jay Eisenberg Unit #: [id number]: 1950 Dicatated By: Sharath Peacock, MDDate of Visit:Jun 09, 2020 Onc Med Follow-up/Prog Note Chief Complaint: Rectal cancer. History of Present Illness: This is a 69-year-old man with recently diagnosed adenocarcinoma of the rectum. He has a history of moderate to poorly differentiated adenocarcinoma of the ascending colon for which he underwent right hemicolectomy on 05/24/2005. His primary tumor measured 6.5 x 4.7 x 1.5 cm. It was invading into the subserosal connective tissues, but there was no involvement in 28 lymph nodes. His disease was thus stage IIA (T3, N0, M0). He declined adjuvant chemotherapy. He failed to return for follow-up. He did have a negative surveillance colonoscopy in March 2009. He had presented recently with a several week history of rectal bleeding. He also was having epigastric pain, and he had one episode of hematemesis. He was seen by Dr. Bose, and he underwent EGD and colonoscopy on 01/01/2020. The EGD showed evidence of reflux esophagitis, gastritis, and duodenitis. Biopsy of the esophagus showed benign gastric mucosa with no dysplasia or malignancy identified. The colonoscopy showed sessile polyps in the mid ascending colon and the distal sigmoid colon. The rectum showed a small size, nonobstructing malignant appearing mass. It was not actively bleeding. It was palpable on digital exam, but the distance from the anal verge was not reported. Pathology on the descending colon polyp showed tubular adenoma with focal high-grade dysplasia. The sigmoid polyp showed tubular adenoma. The rectal mass showed moderately differentiated adenocarcinoma with desmoplastic response. He began his radiation on 05/03/2020. He has been undergoing concurrent chemotherapy with Xeloda. He is due to complete his radiation next week. Thus far he has been tolerating it pretty well. He has had significant diarrhea, but he has been able to manage it adequately with Imodium, which he is now taking twice a day. He is feeling a little tired sometimes. His ECOG score is 1. His appetite had declined and his weight dropped 6 pounds. His weight now has stabilized, and he is eating better. He does not have fever or night sweats. He has sinus drainage and he has been hacking up phlegm, sometimes to the point of having dry heaves. It is attributable to allergies. He has just mild shortness of breath. He does not complain of chest pain. He has not been having nausea. He has indigestion occasionally with spicy foods. He has been having more frequent urination and he has having hesitancy and more difficulty voiding. He has no significant joint or bone pain. He does not complain of headache. He has very occasional dizziness. He says his left arm has had a tendency to go to sleep for years. He has no other focal neurologic symptoms. Medications: Eliquis 1 Tablet (of 5 mg) Oral b.i.d., Finasteride 1 Tablet (of 5 mg) Oral daily, Lisinopril 1 Tablet (of 10 mg) Oral daily, Metoprolol Succinate ER 1 Tablet (of 25 mg) Tablet SR 24 HR Oral b.i.d. Allergies: citrus intolerance Review of Systems: Constitutional - His energy is pretty good, though he is a little tired at times. Appetite had declined and his weight went down 6 pounds, but it has now stabilized, and he is eating better. No fever or night sweats. ECOG score is 1, ENMT - He has sinus drainage. No mouth sores. No sore throat or difficulty swallowing, Hematologic/Lymphatic - He bruises more easily, Respiratory - No shortness of breath. He has been hacking up phlegm, sometimes to the point of dry heaves, but attributable to allergies. No pleuritic pain or hemoptysis, Cardiovascular - No angina pain. No palpitations. He has chronic atrial fibrillation, Gastrointestinal - No nausea or vomiting. He has indigestion with spicy foods, otherwise no heartburn or acid reflux. He has been having diarrhea throughout his treatment. He is managing it with Imodium. No blood in the stool or black stools, Genitourinary (M) - He has having more hesitancy and difficulty voiding. His urination is more frequent. No dysuria or hematuria. No urgency or incontinence, Musculoskeletal - No joint or bone pain, Integumentary - He is getting sensitive in his perianal area, Neurologic - No headache. He very occasionally has dizziness. No numbness or tingling. No other focal neurologic symptoms, Psychiatric - No anxiety or depression. No insomnia. Vital Signs: Blood pressure 116/72, pulse 71, respirations 18, temp 98.0 degrees, oxygen saturation 99%. Weight is 160 pounds. Physical Examination: Constitutional - He looks good generally, Eyes - Sclerae nonicteric. Conjunctivae clear, ENMT - No lesions noted in the oral cavity, Hematologic/Lymphatic - No cervical, clavicular, or axillary adenopathy, Respiratory - Lungs are clear with good air movement bilaterally, Cardiovascular - Heart rhythm is irregular. There is no murmur, gallop, or rub noted, Abdomen - Soft and non-tender. Liver and spleen are not enlarged. There is no abdominal mass or ascites noted and there is no inguinal adenopathy, Extremities - No edema, Neurologic - No focal neurologic deficits noted. Lab/Imaging: CBC shows hemoglobin 13.4 g, white blood cell count 4900, and platelet count 184,000. Comprehensive metabolic profile is unremarkable. Impression: 1. Patient with moderately differentiated adenocarcinoma of the rectum. Staging is incomplete. He had presented with rectal bleeding, that has subsided after stopping apixaban. 2. He has prior history of moderate to poorly differentiated adenocarcinoma of the ascending colon, stage IIA (T3, N0, M0) for which he underwent right hemicolectomy on 05/24/2005. He declined adjuvant chemotherapy. He has had no evidence of recurrence. His other medical illnesses include: 3. Hypertension. 4. Atrial fibrillation, which appears to be intermittent. 5. Benign prostatic hypertrophy. 6. He has a history of treated hepatitis C. He began concurrent therapy with radiation/chemotherapy on 05/03/2020. He has been having diarrhea throughout his treatment, but he is managing adequately with Imodium. He otherwise appears to be tolerating treatment quite well, and he is due to complete radiation next week. Plan: He will continue Xeloda 1800 mg twice daily on days of radiation until he finishes his treatment. I will plan a follow-up visit in 5 weeks. In the meantime, I also will have him start tamsulosin 0.4 mg at bedtime for his voiding symptoms. Signed By: Sharath Peacock MD <<Signature on File>>
--- NOTE | 2020-06-10 07:57 | ONCRAD TMN_ITS ---
Radiation Oncology Weekly Treatment Management Patient: Faina Thompson MR#: [id number] : 1950 Age: 69 Sex: Male Dictated by: Dr. Isma Pringle Date of Service: 06/08/2020 Referring Physician(s) : Dr. Reinier Bose Diagnosis: C20 - Malignant neoplasm of rectum, Diagnosed 01/13/2020 (Active) Z85.038 - Personal history of other malignant neoplasm of large intestine, Diagnosed 01/13/2020 (Active) Pertinent Diagnosis Detail: pT2 N0 (0/1) M0 adenocarcinoma of the rectum status post transanal minimally invasive tumor resection and 1 lymph node sampling (Dr Diaz 02/19/2020). During the exam under anesthesia the tumor was described as being a mobile palpable lesion in the left lateral position. Pathology revealed a 1.5 cm mass of moderately differentiated adenocarcinoma invading into muscularis propria, margins negative by 5 mm, no lymphovascular invasion, no perineural invasion, 0/1 involved lymph nodes, and low probability of MSI-H. In addition, there is a benign appearing mass in the L-spine most consistent with a schwannoma. The patient has been evaluated by Dr Daniel Peacock, neurosurgeon, who elected against biopsy for what was radiographically most likely to be a schwannoma. Although the MRI, read locally, raised a higher concern for metastasis/a malignant process, the MRI of the L spine was over-read at Dr Peacock???s facility and the reading radiologist was reported to concur that a benign schwannoma was most likely. Dr Daniel Peacock and I agreed that if radiation therapy were to be considered in the future to treat this lesion due progressive symptoms, it could be complicated due to prior radiotherapy. Thus, it was mutually agreed that it was reasonable to offer to treat the lesion with radiation simultaneously along with his radiation plan for rectal cancer. The patient was made aware of this decision and he consented. There still remains a small risk that this lesion might not be benign, and radiating it might potentially cause surgical treatment complications in the future. However, given his symptoms and existing planned treatment, it is a reasonable approach. Plan: -) Rectal Cancer: Concurrent chemoradiation therapy using Xeloda and an aggregate dose of 50.4 Gy. -) L spine mass: 50 Gy/25 fractions via simultaneous integrated boost to the L spine mass which radiographically appears to be a benign schwannoma and is causing symptoms. Radiotherapy to date: Course: Pelvis 2019, Treatment Site: Pelvis 25FX, Ref. ID: [id number], Energy: 15X/6X, Dose/Fx (cGy): 200, #Fx: , Dose Correction (cGy): 0, Total Dose (cGy): , 5,000, Start Date: 05/03/2020, End Date: 06/07/2020, Elapsed Days: 35 Treatment Site: Pelvis [id number], Ref. ID: [id number], Energy: 15X/6X, Dose/Fx (cGy): 180, #Fx: , Dose Correction (cGy): 0, Total Dose (cGy): 180, Start Date: 06/08/2020, End Date: 06/08/2020, Elapsed Days: 0 Reason for visit: The patient is being seen today as part of their regularly scheduled weekly on treatment visits to assess for acute toxicities from radiotherapy. Interim History: The patient reports diarrhea which is well controlled with Imodium, improve rectal irritation, and improved back pain. Current Medications: Capecitabine, eliquis, finasteride, lisinopril, metoprolol Succinate ER. Allergies: citrus intolerance. Vital Signs: Performed on 06/08/2020 11:14 AM BMI - 25.154 kg/m2 (high), Height - 67.00 in, Weight - 160.6 lbs, Temperature - 98.8 f, Pulse - 77, Respiration - 18, O2 Sat - 100 %, Pain - 0 and BP - 111/ 72 mm(hg). Physical Exam: Appears stable, no skin erythema or desquamation. Performance Status: 1 - No physically strenuous activity, but ambulatory and able to carry out light or sedentary work (e.g. office work, light house work). (ECOG) Lab: None pending in Radiation Oncology. Test performed on 03/29/2020 11:40 AM RDW - 11.6 % (low), BUN - 3 mg/dl (low), Creatinine - 0.6 mg/dl (low), ALT (SGPT) - 55 u/l (high) and AST (SGOT) - 44 u/l (high). Imaging: Radiation therapy imaging related to accurate target localization (i.e. KV, MV and CBCT) was reviewed. Appropriate changes, if any, were made to ensure treatment accuracy. Plan: The patient is tolerating therapy reasonably well. Radiotherapy will continue as planned. CPT: 54484 Signed by: Dr. Isma Pringle 06/10/2020 7:55:59 AM
== END 2020-07-03 23:59 | disposition home or self-care (01) ==
LOC: ONCMED 05:34
PROVIDERS: Internal Medicine Medical Oncology; Absent Provider Radiology Radiation Oncology; PCP Family Medicine; Visit Provider Radiology Radiation Oncology
DX: Z51.0 Encounter for antineoplastic radiation therapy (principal); C20 Malignant neoplasm of rectum; I10 Essential (primary) hypertension; I48.91 Unspecified atrial fibrillation; N40.0 Benign prostatic hyperplasia without lower urinary tract symptoms; Z86.19 Personal history of other infectious and parasitic diseases; Z92.21 Personal history of antineoplastic chemotherapy
CPT/HCPCS: 77300; 77336; 77338; 77386; 80053; 85025; 99214

== ENCOUNTER 2020-07-23 05:51 | Outpatient (RCR) | payer MEDICARE, SELFPAY ==
[2020-07-14 08:45] LABS: Basophils # 0.1 10^3/uL (0.0-0.1); Eosinophils # 0.1 10^3/uL (0.0-0.8); Eosinophils % 1.4 %; Hematocrit 41.6 % (42.0-52.0); Hemoglobin 14.1 g/dL (11.7-16.6); Lymphocytes # 0.7 10^3/uL (0.8-4.8); Lymphocytes % 13.1 %; Mean Corpuscular HGB Conc 33.9 g/dL (30.0-36.0); Mean Corpuscular Hemoglobin 34.4 pg (28.0-34.0); Mean Corpuscular Volume 101.5 fL (80-94); Mean Platelet Volume 9.3 fL (7.4-10.4); Monocytes # 0.6 10^3/uL (0.2-0.9); Monocytes % 11.1 %; Neutrophils # 3.65 10^3/uL (1.8-7.7); Neutrophils % 72.2 %; Nucleated Red Blood Cells % 0 %; Platelet Count 195 10^3/cmm (130-400); Red Cell Distribution Width 14.5 % (12.1-15.1); White Blood Count 5.1 10^3/uL (4.0-10.0)
[2020-07-14 09:08] LABS: Alanine Aminotransferase 28 U/L (0-41); Alkaline Phosphatase 78 IU/L (40-130); Anion Gap 13.3 (5-19); Aspartate Amino Transferase 30 U/L (0-40); Blood Urea Nitrogen 5 mg/dL (8-23); Carbon Dioxide 27 mmol/L (22-29); Chloride 100 mmol/L (98-107); Globulin 3.4 g/dL (1.3-4.6); Glucose 130 mg/dL (65-115); Osmolality Calculated 281 mOsm/kg (285-295); Potassium 4.3 mmol/L (3.5-5.1); Sodium 136 mmol/L (136-145); Total Bilirubin 0.5 mg/dL (0.15-1.2); Total Protein 7.4 g/dL (6.6-8.7)
--- NOTE | 2020-07-20 21:33 | ONC FU_ITS ---
[facility] Patient Note Patient: Jay Nassar < Unit #: [id number]: 1950 Dictated By: Sonali GonsalezDate of Visit: Jul 14, 2020 Onc MED Follow-Up/Prog Note Chief Complaint: Rectal cancer. History of Present Illness: Mr Nassar is a 69-year-old man with recently diagnosed adenocarcinoma of the rectum. He has a history of moderate to poorly differentiated adenocarcinoma of the ascending colon for which he underwent right hemicolectomy on 05/24/2005. His primary tumor measured 6.5 x 4.7 x 1.5 cm. It was invading into the subserosal connective tissues, but there was no involvement in 28 lymph nodes. His disease was thus stage IIA (T3, N0, M0). He declined adjuvant chemotherapy. He failed to return for follow-up. He did have a negative surveillance colonoscopy in March 2009. Mr Nassar presented recently with a several week history of rectal bleeding. He also was having epigastric pain, and he had one episode of hematemesis. He was seen by Dr. Bose, and he underwent EGD and colonoscopy on 01/01/2020. The EGD showed evidence of reflux esophagitis, gastritis, and duodenitis. Biopsy of the esophagus showed benign gastric mucosa with no dysplasia or malignancy identified. The colonoscopy showed sessile polyps in the mid ascending colon and the distal sigmoid colon. The rectum showed a small size, nonobstructing malignant appearing mass. It was not actively bleeding. It was palpable on digital exam, but the distance from the anal verge was not reported. Pathology on the descending colon polyp showed tubular adenoma with focal high-grade dysplasia. The sigmoid polyp showed tubular adenoma. The rectal mass showed moderately differentiated adenocarcinoma with desmoplastic response. He began his radiation and concurrent chemotherapy with Xeloda on 05/03/2020. Mr. Nassar completed his radiation therapy to the pelvis on 06/07/2020 to a total dose of 5000 cGy. Then he had pelvic boost beginning on 06 08 and completed on 101 to a total dose of 1080 cGy he has tolerated the radiation and Xeloda well overall. He has had significant diarrhea, but he has been able to manage it adequately with Imodium. He states even now he continues to have some intermittent/persistent diarrhea. He states he continues to be controlled well with the Imodium. He denies any new concerns. He denies any new pain. He has had no shortness of breath or orthopnea. He denies any fever or chills. He denies any urinary symptoms or hesitancy. He states his appetite is better. He denies mouth sores, sore throat or difficulty swallowing. He has had no skin changes. He states that he has been having some sharp pain in his right hip that radiates down his leg. He states it comes and goes he does not seem to be related to anything in particular such as exercise or moving it a certain way. It bothers him randomly throughout the day and night. He denies any falls. He denies any TIA symptoms. His ECOG is 1. Past Medical History: Atrial fibrillation Benign prostatic hypertrophy History of ascending colon cancer, stage IIA (T3, N0, M0) History of treated hepatitis C Hypertension Past Surgical History: Bilateral cataract excisions TURP EGD and colonoscopy in 2019 Surveillance colonoscopy in 2008 Right hemicolectomy for ascending colon cancer in 2004 Allergies: citrus intolerance Medications: Eliquis 1 Tablet (of 5 mg) Oral b.i.d. Finasteride 1 Tablet (of 5 mg) Oral daily Lisinopril 1 Tablet (of 10 mg) Oral daily Metoprolol Succinate ER 1 Tablet (of 25 mg) Tablet SR 24 HR Oral b.i.d. Family History: Mr. Nassar's mother at age 93: heart disease, and old age. Mr. Nassar's father at age 50: myocardial infarction. Mr. Nassar has 2 brothers: 2 alive. Mr. Nassar's first brother's heart murmur. He has 2 sisters: 1 alive, 1 . Mr. Nassar's first sister's lung cancer. Father of heart attack at age 50. Mother also had heart disease but lived to age 93. A brother also has heart disease and heart disease reportedly runs in the family . A sister of lung cancer at age 68. Social History: Mr. Nassar is single and he is an unknown. Mr. Nassar quit smoking 6 years ago but had smoked 0.5 packs/day for 48 years. He drinks daily. He consumes 3 drinks/day 1 day/week. He is retired. He had previously worked as a boo. He has history of smoking at least a pack of cigarettes daily for 20 years. He had quit for 12 years but then smoked for another 3 or 4 years. He quit again 5 or 6 years ago. He drinks 2-3 beers daily. Review Of Symptoms: Constitutional Denies fevers, chills, night sweats, excessive fatigue or weight loss. Allergic/Immunologic No reactions. Eyes Denies significant visual changes. No diplopia. No amaurosis. ENMT Denies changes in hearing, sore throat, mouth sores, difficulty or changes in swallowing ability, and/or sinus drainage. Endocrine No diabetes, thyroid disease or hormone replacement. Denies hot flashes or night sweats. Hematologic/Lymphatic Denies easy bruising or bleeding. The patient denies any tender or palpable lymph nodes. Respiratory Denies dyspnea on exertion, chest pain, cough or hemoptysis. Denies orthopnea. Cardiovascular Denies anginal chest pain, palpitations or orthopnea. Gastrointestinal Denies nausea, vomiting, GI bleeding, or constipation. Denies change in bowel habits and/or stool color, no heartburn or early satiety. He states he is still having persistent diarrhea. He states he has had C-diff testing several times and it has been negative. I am not sure that he has tried the Imodium consistently. Genitourinary (M) Denies hematuria, dysuria, increased frequency, urgency, hesitancy or incontinence. Musculoskeletal Denies joint pain, swelling or redness. No decreased range of motion. Sharp pain in right hip that radiates down his right leg. No hx of trauma or fall. Integumentary Denies chronic rashes, inflammation, ulcerations or skin changes. Neurologic Denies headache, blurred vision, and no areas of focal weakness or numbness. Gait slow due to hip and leg pain. No sensory problems. Psychiatric Denies insomnia, depression, brit or mood swings. Vital Signs: Performed on Jul 14, 2020 10:33 Height - 67.00 in Weight - 160.6 lbs BSA - 1.84 sq.m BMI - 25.15 Temperature - 98.4 F Pulse - 71 /min Respiration - 20 /min BP - 112/70 mm(hg) O2 Sat - 95 % (LOW) Pain - 0,1 - No physically strenuous activity, but ambulatory and able to carry out light or sedentary work (e.g. office work, light house work). (ECOG) Physical Examination: Constitutional Alert, oriented, no acute distress. Skin pink, warm and dry. Head Normocephalic; atraumatic. Eyes Conjunctivae and sclerae are clear and without icterus. Pupils are reactive and equal. Neck Supple without masses or thyromegaly. No jugular venous distension. Hematologic/Lymphatic No petechiae or purpura. No tender or palpable lymph nodes in the cervical or supraclavicular areas. Respiratory Lungs are clear to auscultation without rhonchi or wheezing. Cardiovascular Regular rate and rhythm of heart without murmurs,clicks, gallops or rubs. Abdomen Non-tender, non-distended, no masses or ascites. Good bowel sounds noted in all quads. No guarding or rebound tenderness. No pulsatile masses. Back/Spine Non-tender to palpation. Extremities No visible deformities, no cyanosis, clubbing or edema. Musculoskeletal No tenderness or swelling, normal range of motion without obvious weakness. Integumentary No rashes or lesions. Neurologic No sensory or motor deficits, normal cerebellar function, normal gait. Psychiatric Alert and oriented times three. Coherent speech. Verbalizes understanding of our discussions today. Laboratory:Test performed on Jul 14, 2020 08:25 Sodium 136 mmol/L Potassium 4.3 mmol/L Chloride 100 mmol/L CO2 27 mmol/L Anion Gap 13.3 BUN 5 mg/dL Creatinine 0.5 mg/dL Cr Clearance (Est) 142.9300 mL/min Glucose 130 mg/dL Osmolality - Calculated 281 mOsm/kg Calcium 9.0 mg/dL Protein, Total 7.4 g/dL Albumin 4.0 g/dL Globulin 3.4 g/dL Bilirubin, Total 0.5 mg/dL ALT (SGPT) 28 U/L AST (SGOT) 30 U/L Alkaline Phosphatase 78 IU/L WBC 5.1 10 3/uL RBC 4.10 10 6/uL HGB 14.1 g/dL HCT 41.6 % MCV 101.5 fL MCH 34.4 pg MCHC 33.9 g/dL RDW 14.5 % Platelet Count 195 10 3/cmm MPV 9.3 fL Neutrophils 3.65 10 3/uL Lymphocytes 0.7 10 3/uL Monocytes 0.6 10 3/uL Eosinophils 0.1 10 3/uL Basophils 0.1 10 3/uL Neutrophil % 72.2 % Lymphocyte % 13.1 % Monocyte % 11.1 % Eosinophil % 1.4 % Basophils % 1.0 % NRBC % 0 % Test performed on Mar 29, 2020 11:40 CEA 4.1 ng/mL Impression: 1. Patient with moderately differentiated adenocarcinoma of the rectum. Staging is incomplete. He had presented with rectal bleeding, that has subsided after stopping apixaban. 2. He has prior history of moderate to poorly differentiated adenocarcinoma of the ascending colon, stage IIA (T3, N0, M0) for which he underwent right hemicolectomy on 05/24/2005. He declined adjuvant chemotherapy. He has had no evidence of recurrence. His other medical illnesses include: 3. Hypertension. 4. Atrial fibrillation, which appears to be intermittent. 5. Benign prostatic hypertrophy. 6. He has a history of treated hepatitis C. He began concurrent therapy with radiation/chemotherapy on 05/03/2020. He had diarrhea throughout his treatment, but he has been able to manage adequately with Imodium. Mr. Nassar completed his chemotherapy with Xeloda and radiation. His radiation to the pelvis was standard dosing of 5000 cGy which was completed on 06/07/2020. He then had pelvic boost boost to a total dose of thousand 80 from 10 6-10 13. He has recovered well but continues to have some intermittent/persistent diarrhea. It continues to be well controlled with Imodium. Plan: 1. He will continue with surveillance at this time. 2. He was advised that he could try Metamucil doubling the normal dosage to see if this would help with his persistent diarrhea. He states sometimes it is just pure water . He does feel that it is somewhat improving and it continues to respond with the Imodium. 3. Labs from 07/14/2020 were reviewed in detail discussed with Mr. Nassar and a copy was given to him. WBC 5.1, hemoglobin 14.1 platelets 295,000 ANC is 3650. Potassium 4.3 creatinine 0.5 random glucose 130 LFTs were normal. His last CEA was 4.1 on March 09, 2020. 4. We will plan is he him back in 4 to 6 weeks with CBC CMP. At that time he will see Dr. Peacock to ensure that there is no further plan of care at this time. Dr. Pringle in radiation oncology has ordered his follow-up scans to be done in 3 months after completion of the chemotherapy/radiation which was on 06/15/2020. 5. Mr. Nassar has been encouraged to contact us in the interim should questions or problems arise. Signed By: Sonali Gonsalez-, [facility] Sharath Peacock MD <<Signature on File>>
== END 2020-08-02 23:59 | disposition home or self-care (01) ==
LOC: ONCMED 05:51
PROVIDERS: Nurse Practitioner; PCP Family Medicine; Visit Provider Radiology Radiation Oncology
DX: Z08 Encounter for follow-up examination after completed treatment for malignant neoplasm (principal); Z85.038 Personal history of other malignant neoplasm of large intestine; I10 Essential (primary) hypertension; I48.91 Unspecified atrial fibrillation; N40.0 Benign prostatic hyperplasia without lower urinary tract symptoms; Z86.19 Personal history of other infectious and parasitic diseases; Z92.3 Personal history of irradiation; Z92.21 Personal history of antineoplastic chemotherapy; Z79.899 Other long term (current) drug therapy
CPT/HCPCS: 36415; 80053; 85025; 99214

== ENCOUNTER 2020-09-07 09:46 | Outpatient (CLI) | payer MEDICARE, SELFPAY ==
[2020-09-07 10:48] LABS: Basophils # 0.1 10^3/uL (0.0-0.1); Eosinophils # 0.1 10^3/uL (0.0-0.8); Eosinophils % 2.7 %; Hematocrit 43.5 % (42.0-52.0); Hemoglobin 14.6 g/dL (11.7-16.6); Lymphocytes # 0.8 10^3/uL (0.8-4.8); Lymphocytes % 15.4 %; Mean Corpuscular HGB Conc 33.6 g/dL (30.0-36.0); Mean Corpuscular Hemoglobin 33.7 pg (28.0-34.0); Mean Corpuscular Volume 100.5 fL (80-94); Mean Platelet Volume 9.2 fL (7.4-10.4); Monocytes # 0.6 10^3/uL (0.2-0.9); Monocytes % 11.5 %; Neutrophils # 3.33 10^3/uL (1.8-7.7); Neutrophils % 68.4 %; Nucleated Red Blood Cells % 0 %; Platelet Count 180 10^3/cmm (130-400); Red Blood Count 4.33 10^6/uL (4.1-5.3); Red Cell Distribution Width 11.5 % (12.1-15.1); White Blood Count 4.9 10^3/uL (4.0-10.0)
[2020-09-07 11:07] LABS: Alanine Aminotransferase 23 U/L (0-41); Albumin Level 3.9 g/dL (3.5-5.2); Alkaline Phosphatase 74 IU/L (40-130); Anion Gap 12.4 (5-19); Aspartate Amino Transferase 23 U/L (0-40); Blood Urea Nitrogen 5 mg/dL (8-23); Calcium 8.9 mg/dL (8.5-10.5); Carbon Dioxide 27 mmol/L (22-29); Chloride 102 mmol/L (98-107); Globulin 3.5 g/dL (1.3-4.6); Glucose 107 mg/dL (65-115); Osmolality Calculated 282 mOsm/kg (285-295); Potassium 4.4 mmol/L (3.5-5.1); Sodium 137 mmol/L (136-145); Total Bilirubin 0.4 mg/dL (0.15-1.2); Total Protein 7.4 g/dL (6.6-8.7)
[2020-09-07 14:05] LABS: Carcinoembryonic Antigen 3.9 ng/mL (0.0-4.7)
--- NOTE | 2020-09-12 20:09 | ONC FU_ITS ---
[facility] Patient Note Patient: Jay Nassar Unit #: [id number]: [id number] Dictated By: Sonali GonsalezDate of Visit: Sep 07, 2020 Onc MED Follow-Up/Prog Note Chief Complaint: Rectal cancer. History of Present Illness: Mr Nassar is a 70-year-old man with recently diagnosed adenocarcinoma of the rectum. He has a history of moderate to poorly differentiated adenocarcinoma of the ascending colon for which he underwent right hemicolectomy on 05/24/2005. His primary tumor measured 6.5 x 4.7 x 1.5 cm. It was invading into the subserosal connective tissues, but there was no involvement in 28 lymph nodes. His disease was thus stage IIA (T3, N0, M0). He declined adjuvant chemotherapy. He failed to return for follow-up. He did have a negative surveillance colonoscopy in March 2009. Mr Nassar presented recently with a several week history of rectal bleeding. He also was having epigastric pain, and he had one episode of hematemesis. He was seen by Dr. Bose, and he underwent EGD and colonoscopy on 01/01/2020. The EGD showed evidence of reflux esophagitis, gastritis, and duodenitis. Biopsy of the esophagus showed benign gastric mucosa with no dysplasia or malignancy identified. The colonoscopy showed sessile polyps in the mid ascending colon and the distal sigmoid colon. The rectum showed a small size, nonobstructing malignant appearing mass. It was not actively bleeding. It was palpable on digital exam, but the distance from the anal verge was not reported. Pathology on the descending colon polyp showed tubular adenoma with focal high-grade dysplasia. The sigmoid polyp showed tubular adenoma. The rectal mass showed moderately differentiated adenocarcinoma with desmoplastic response. Mr. Nassar was seen by Dr. Champ Diaz in [place] on January 19, 2020-he did have follow-up MRI of the pelvis at that time as well. Per Dr. Diaz's report he indicated that it was the lesion was hard to see on the MRI suggesting T1 disease. The impression on the report was mild focal thickening at the left lower rectal wall, favored to represent the patient's known rectal neoplasm. No evidence of extension through the muscularis propria. There is a tiny 3 mm perirectal and 4 mm presacral lymph nodes. Incompletely evaluated lobulated enhancing mass along the right S1 nerve root most likely a neurogenic tumor. Unless previously evaluated, recommend further evaluation and with pre and postcontrast MRI of the lumbar spine. (The mass along the S1 nerve was evaluated by Dr. Daniel Peacock, neurosurgeon, and elected against biopsy for what radiographically was most likely as schwannoma). On February 19, 2020 Mr. Nassar underwent transanal, minimally invasive tumor resection (TAMIS) per Dr. Diaz at [facility]. The tumor size was 1.5 cm. Was found to be adenocarcinoma moderately differentiated all margins were reported to be uninvolved by invasive carcinoma, high-grade dysplasia and adenoma. There was no metastatic carcinoma in 1 lymph node. There was no loss of nuclear expression of MMR proteins, low probability of MSI???H. MLH1, MSH2, MSH6 and PMS2 are all intact expressions. Mr. Nassar was then referred to [facility] for treatment with radiation in combination with capecitabine. He began his radiation and concurrent chemotherapy with Xeloda on 05/03/2020. Mr. Nassar completed his radiation therapy to the pelvis on 06/07/2020 to a total dose of 5000 cGy. Then he had pelvic boost beginning on and completed on 06/15/2020 to a total dose of 1080 cGy. He tolerated the radiation and Xeloda well overall. He had significant diarrhea, but he was able to manage it adequately with Imodium. Mr. Nassar is here today for follow-up. He denies any new concerns. He states overall he is doing well. He continues to have a lot of diarrhea but has never tried Lomotil. We also discussed using Metamucil at increased doses to try to help thicken the stool which he has not tried. He states there is times that he has such an issue that he carries extra close with him at all times. He states he does feels like he has no control and no warning as to when he may have significant diarrhea. He denies any blood or appearance of blood/discolored stools with the diarrhea. He states it does not seem to be diet related. He denies any fever or chills. He denies any shortness of breath or orthopnea. He states he does cough up some phlegm in the morning but is not been discolored or anything different than his normal. He denies any pain. He denies any nausea or vomiting. He states has had no skin rashes or lesions. He has had no skin peeling. He denies any mouth sores, sore throat or difficulty swallowing. His ECOG is 1. Past Medical History: Atrial fibrillation Benign prostatic hypertrophy History of ascending colon cancer, stage IIA (T3, N0, M0) History of treated hepatitis C Hypertension Past Surgical History: Bilateral cataract excisions TURP EGD and colonoscopy in 2019 Surveillance colonoscopy in 2008 Right hemicolectomy for ascending colon cancer in 2004 Allergies: citrus intolerance Medications: Eliquis 1 Tablet (of 5 mg) Oral b.i.d. Finasteride 1 Tablet (of 5 mg) Oral daily Metoprolol Succinate ER 1 Tablet (of 50 mg) Tablet SR 24 HR Oral b.i.d. Family History: Mr. Waynes mother at age 93: heart disease, and old age. Mr. Waynes father at age 50: myocardial infarction. Mr. Nassar has 2 brothers: 2 alive. Mr. Nassar's first brother's heart murmur. He has 2 sisters: 1 alive, 1 . Mr. Nassar's first sister's lung cancer. Father of heart attack at age 50. Mother also had heart disease but lived to age 93. A brother also has heart disease and heart disease reportedly runs in the family . A sister of lung cancer at age 68. Social History: Mr. Nassar is single and he is an unknown. Mr. Nassar quit smoking 7 years ago but had smoked 0.5 packs/day for 48 years. He drinks daily. He consumes 3 drinks/day 1 day/week. He is retired. He had previously worked as a boo. He has history of smoking at least a pack of cigarettes daily for 20 years. He had quit for 12 years but then smoked for another 3 or 4 years. He quit again 5 or 6 years ago. He drinks 2-3 beers daily. Review Of Symptoms: Constitutional Denies fevers, chills, night sweats, excessive fatigue or weight loss. Allergic/Immunologic No reactions. Eyes Denies significant visual changes. No diplopia. No amaurosis. ENMT Denies changes in hearing, sore throat, mouth sores, difficulty or changes in swallowing ability, and/or sinus drainage. Endocrine No diabetes, thyroid disease or hormone replacement. Denies hot flashes or night sweats. Hematologic/Lymphatic Denies easy bruising or bleeding. The patient denies any tender or palpable lymph nodes. Respiratory Denies dyspnea on exertion, chest pain, cough or hemoptysis. Denies orthopnea. Cardiovascular Denies anginal chest pain, palpitations or orthopnea. Gastrointestinal Persistent diarrhea he can control it if takes Imodium consistently but then has constipation. Genitourinary (M) Denies hematuria, dysuria, increased frequency, urgency, hesitancy or incontinence. Musculoskeletal Denies joint pain, swelling or redness. No decreased range of motion. Integumentary Denies chronic rashes, inflammation, ulcerations or skin changes. Neurologic Denies headache, blurred vision, and no areas of focal weakness or numbness. Gait slow due to hip and leg pain. No sensory problems. Psychiatric Denies insomnia, depression, brit or mood swings. Vital Signs: Performed on Sep 07, 2020 11:34 Height - 67.00 in Weight - 164.4 lbs (HIGH) BSA - 1.86 sq.m BMI - 25.75 Temperature - 98.2 F (LOW) Pulse - 66 /min Respiration - 18 /min BP - 126/81 mm(hg) O2 Sat - 99 % Pain - 0,1 - No physically strenuous activity, but ambulatory and able to carry out light or sedentary work (e.g. office work, light house work). (ECOG) Physical Examination: Constitutional Alert, oriented, no acute distress. Skin pink, warm and dry. Head Normocephalic; atraumatic. Eyes Conjunctivae and sclerae are clear and without icterus. Pupils are reactive and equal. Neck Supple without masses or thyromegaly. No jugular venous distension. Hematologic/Lymphatic No petechiae or purpura. No tender or palpable lymph nodes in the cervical or supraclavicular areas. Respiratory Lungs are clear to auscultation without rhonchi or wheezing. Cardiovascular Regular rate and rhythm of heart without murmurs,clicks, gallops or rubs. Back/Spine Non-tender to palpation. Extremities No visible deformities, no cyanosis, clubbing or edema. Musculoskeletal No tenderness or swelling, normal range of motion without obvious weakness. Integumentary No rashes or lesions. Neurologic No sensory or motor deficits, normal cerebellar function, normal gait. Psychiatric Alert and oriented times three. Coherent speech. Verbalizes understanding of our discussions today. Laboratory:Test performed on Sep 07, 2020 10:15 Sodium 137 mmol/L Potassium 4.4 mmol/L Chloride 102 mmol/L CO2 27 mmol/L Anion Gap 12.4 BUN 5 mg/dL Creatinine 0.6 mg/dL Cr Clearance (Est) 117.3800 mL/min Glucose 107 mg/dL Osmolality - Calculated 282 mOsm/kg Calcium 8.9 mg/dL Protein, Total 7.4 g/dL Albumin 3.9 g/dL Globulin 3.5 g/dL Bilirubin, Total 0.4 mg/dL ALT (SGPT) 23 U/L AST (SGOT) 23 U/L Alkaline Phosphatase 74 IU/L WBC 4.9 10 3/uL RBC 4.33 10 6/uL HGB 14.6 g/dL HCT 43.5 % MCV 100.5 fL MCH 33.7 pg MCHC 33.6 g/dL RDW 11.5 % Platelet Count 180 10 3/cmm MPV 9.2 fL Neutrophils 3.33 10 3/uL Lymphocytes 0.8 10 3/uL Monocytes 0.6 10 3/uL Eosinophils 0.1 10 3/uL Basophils 0.1 10 3/uL Neutrophil % 68.4 % Lymphocyte % 15.4 % Monocyte % 11.5 % Eosinophil % 2.7 % Basophils % 1.0 % NRBC % 0 % CEA 3.9 ng/mL PSA 0.30 ng/mL Impression: 1. Patient with moderately differentiated adenocarcinoma of the rectum (status post Ximena Diaz January 2020). MMR no loss of nuclear expression and MSI-H was low probability. He had presented with rectal bleeding, that has subsided after stopping apixaban. 2. He has prior history of moderate to poorly differentiated adenocarcinoma of the ascending colon, stage IIA (T3, N0, M0) for which he underwent right hemicolectomy on 05/24/2005. He declined adjuvant chemotherapy. He has had no evidence of recurrence. His other medical illnesses include: 3. Hypertension. 4. Atrial fibrillation, which appears to be intermittent. 5. Benign prostatic hypertrophy. 6. He has a history of treated hepatitis C. Mr. Nassar was seen by Dr. Champ Diaz in [place] on January 19, 2020 he did have follow-up MRI of the pelvis at that time as well. Per Dr. Diaz's report he indicated that it was the lesion was hard to see on the MRI suggesting T1 disease. The impression on the report was mild focal thickening at the left lower rectal wall, favored to represent the patient's known rectal neoplasm. No evidence of extension through the muscularis propria. There is a tiny 3 mm perirectal and 4 mm presacral lymph nodes. Incompletely evaluated lobulated enhancing mass along the right S1 nerve root most likely a neurogenic tumor. Unless previously evaluated, recommend further evaluation and with pre and postcontrast MRI of the lumbar spine. (The mass along the S1 nerve was evaluated by Dr. Daniel Peacock, neurosurgeon, and elected against biopsy for what radiographically was most likely as schwannoma). On February 19, 2020 Mr. Nassar underwent transanal, minimally invasive tumor resection per Dr. Diaz at [facility]. The tumor size was 1.5 cm. Was found to be adenocarcinoma moderately differentiated all margins were reported to be uninvolved by invasive carcinoma, high-grade dysplasia and adenoma. There was no metastatic carcinoma in 1 lymph node. There was no loss of nuclear expression of MMR proteins, low probability of MSI???H. MLH1, MSH2, MSH6 and PMS2 are all intact expressions. Mr. Nassar was then referred to [facility] for treatment with radiation in combination with capecitabine. He began concurrent therapy with radiation/chemotherapy on 05/03/2020. He had diarrhea throughout his treatment, but he has been able to manage adequately with Imodium. Mr. Nassar completed his chemotherapy with Xeloda and radiation. His radiation to the pelvis was standard dosing of 5000 cGy which was completed on 06/07/2020. He then had pelvic boost boost to a total dose of thousand 80 from 10 6-10 13. He has recovered well but continues to have intermittent/persistent diarrhea. Plan: PROBLEMS ADDRESSED TODAY: a. RECTAL CANCER: 1. He will continue with surveillance at this time. We will let Dr. Diaz know that he is completed with therapy. Mr. Nassar states that he was told Dr. Diaz see him back 6 weeks after he completed treatment but he has not yet done that. 2. He was advised that he could try Metamucil doubling the normal dosage to see if this would help with his persistent diarrhea. We will call in [employer] to [facility] to see if this will help as well. 3. Labs from 09/07/2020 were reviewed in detail discussed with Mr. Nassar and a copy was given to him. WBC 4.9, hemoglobin 14.6, platelets 180,000 ANC is 3300. Potassium 4.4 creatinine 0.6 random glucose 107 are normal. His last CEA was 4.1 on March 09, 2020. 4. Dr. Pringle in radiation oncology has ordered his follow-up scans to be done in 3 months after completion of the chemotherapy/radiation which was on 06/15/2020. We will check with Dr Diaz's office to see if they like to do that there when it done here. His last CT of the chest/abdomen/pelvis with and without contrast was done at [facility] on January 15, 2020 pr our records). He did have preop MRI of the pelvis per Dr Diaz in January 2020. We will clarify with Dr. Tellez's office if they want to order the CTs or just repeat his MRI and again whether that needs to be done prior to his visit. An MRI of the pelvis will need to be done at [facility]. 5. We will plan to see him back in 4 to 6 weeks to make sure that he has been able to see Dr. Diaz and has had follow-up imaging obtained. 6. Mr. Nassar has been encouraged to contact us in the interim should questions or problems arise. B. ROUTINE HEALTH SURVEILLANCE: 1. We will obtain a screening PSA as Mr. Nassar has a follow-up with his urologist Dr. Welch in [place] in the next few weeks and needed a screening PSA prior to that visit. We will add that to the blood in the lab for today. I did request that we fax that result to Dr Welch's office. Mr Nassar may also pick it up and take with him to the appointment. Signed By: Sonali Gonsalez-, AOCN Sharath Peacock MD <<Signature on File>>
== END 2020-09-07 09:47 | disposition home or self-care (01) ==
LOC: ONCMED 09:49
PROVIDERS: PCP Family Medicine; Visit Provider Nurse Practitioner
DX: Z08 Encounter for follow-up examination after completed treatment for malignant neoplasm (principal); Z85.038 Personal history of other malignant neoplasm of large intestine; I10 Essential (primary) hypertension; I48.91 Unspecified atrial fibrillation; N40.0 Benign prostatic hyperplasia without lower urinary tract symptoms; Z12.5 Encounter for screening for malignant neoplasm of prostate; Z86.19 Personal history of other infectious and parasitic diseases; Z92.21 Personal history of antineoplastic chemotherapy
CPT/HCPCS: 36415; 80053; 82378; 85025; 99214; G0103